=== PATIENT | male | born 1960 | race African-American/Black ===

== ENCOUNTER 2019-08-28 18:17 | Inpatient (IN) | payer MEDICARE ==
[2019-08-28] MEDS ORDERED: Ondansetron PF 4 MG/2 ML Vial IVP PRN ×2 (19:10→19:21)
[2019-08-28] MEDS ORDERED: Acetaminophen 325 MG TAB PO PRN ×2 (19:10→19:21)
[2019-08-28] MEDS ORDERED: Ondansetron ODT 4 MG TAB SL PRN (19:10)
[2019-08-28] MEDS ORDERED: Acetaminophen 650 MG Suppository PR PRN (19:21)
[2019-08-28] MEDS ORDERED: Ondansetron ODT 4 MG TAB PO PRN (19:21)
[2019-08-28] MEDS ORDERED: Albuterol Sulfate 2.5 mg/3 ml Neb NEB PRN (19:24)
[2019-08-28] MEDS: Sodium Chloride 0.9% 1,000 ML IV SCH (19:37)
[2019-08-28] MEDS: Famotidine/PF 20 mg/2ml Vial SLOW IVP SCH (21:03)
[2019-08-28 21:22] VITALS: BMI 22.4
--- NOTE | 2019-08-29 00:45 | HP ---
TIME OF ASSESSMENT: 1800 hours. CHIEF COMPLAINT: Persistent cough. HISTORY OF PRESENT ILLNESS: Mr. Duvall is a pleasant 58-year-old gentleman, who presented to the emergency department today, initially seen at [facility] due to persisting cough for the last 4 months. The patient states he has seen his primary care physician on multiple occasions and has actually completed oral antibiotics for presumed URI with no improvement. The patient states he even attempted to quit smoking in the last 2 to 3 months and has noted no improvement. He states he has experienced occasional orthopnea, causing him have to sleep with the head of his bed elevated for the last 2 to 3 months. Denies any hemoptysis. Has not had any fevers, chills, or sweats until today. While in the emergency department at [facility], he was noted to have a low-grade temperature. The patient denies any chest pain. Denies any lightheadedness or dizziness. Reports notable weight loss of 20 pounds in the last 3 to 4 months. Again, denies any chest pain. REVIEW OF SYSTEMS: All other review of systems are negative. ED COURSE: In the emergency department at [facility], he underwent laboratory studies, which showed white count of 15.4, hemoglobin of 12, hematocrit 42.2, platelets 337, neutrophils 10.5. Sodium 141, potassium 4.3, chloride 104, BUN 9 , creatinine 0.7, GFR greater than 90, glucose 79, calcium 9. LFTs unremarkable. Alkaline phosphatase 146, albumin 3.8, total protein 7.2. He underwent a chest x-ray, which demonstrated a large right upper lobe mass with pleural abutment. Further imaging was obtained with a CT scan of the chest, which showed a large right suprahilar mass suspicious for malignancy with enlarged lymph nodes in the right hilar region at the right aspect suspicious for malignant lymphadenopathy. PET imaging was recommended to assess for metastatic disease. He was noted to have an enlarged lymph node nodule within the right adrenal gland, not fully characterized. Shotty appearing lymph node in the axilla. Interstitial prominence within the right upper lobe and right middle lobe, felt to reflect edema versus lymphangitic spread of tumor. Emphysema present. He was started on IV antibiotics for Zithromax and Rocephin, given DuoNeb and IV fluids with 1 L of normal saline. The patient has been transferred here for further workup and management. At this present time, he denies any complaints. PAST MEDICAL HISTORY: 1. Heavy smoker. 2. Hypertension. 3. Hyperlipidemia. PAST SURGICAL HISTORY: None. SOCIAL HISTORY: The patient lives with his . Denies any heavy alcohol consumption. Reports smoking half a pack a day for over 20 years. He quit in the last 2 to 3 months. Denies any illicit drug use. ALLERGIES: NO KNOWN DRUG ALLERGIES. CURRENT MEDICATIONS: 1. Atorvastatin. 2. Aspirin. 3. Garlic. 4. Amlodipine. 5. Vitamin C. 6. Vitamin D3. 7. Multivitamin. 8. Calcium. PHYSICAL EXAMINATION: GENERAL: The patient appears thin, well developed, and in no acute distress. VITAL SIGNS: Temperature 99.4, pulse of 88, respirations 18, O2 saturation 98% on room air, blood pressure 127/73. HEENT: Normocephalic and atraumatic. Pupils are equal, round, and reactive to light. Sclerae without icterus. Oropharynx is clear. NECK: Supple. LUNGS: Clear to auscultation bilaterally without any wheezes, rales, or rhonchi. CARDIAC: Regular rate and rhythm. ABDOMEN: Soft, nontender, nondistended. Normoactive bowel sounds present. No guarding or rigidity. No renal angle tenderness. EXTREMITIES: No lower leg swelling or edema. NEUROLOGIC: Alert and oriented x3. SKIN: Warm and dry. INVESTIGATIONS: As mentioned above in HPI. IMPRESSION AND PLAN: Mr. Duvall is a pleasant 58-year-old gentleman, who has had a persistent cough for 4 months associated with intermittent orthopnea, who has presented to the emergency department due to no improvement despite courses of antibiotics. The patient being admitted for management of the following. 1. New lung mass. This is very likely malignant and Pulmonology has been consulted for bronchoscopy. The patient with normal saturations and no associated pain or hemoptysis. We will consult Palliative Care for complex decision making. We will order p.faith Wild. The patient without any shortness of breath or wheezing at present. 2. Possible underlying pneumonia. The patient is febrile at [facility]. Started on IV antibiotics which we will continue. 3. Hypertension. Monitor blood pressure and resume home medications once verified. 4. Hyperlipidemia. Resume home medications once verified. 5. Gastrointestinal prophylaxis with famotidine. 6. Deep venous thrombosis prophylaxis with mechanical SCDs. Walking program consulted. 7. Code status full. Surrogate decision maker is his , Concepcion Duvall. The patient's case was discussed with attending, who agrees with plan of care as described above. Job ID: [id number] MTDD
[2019-08-29] MEDS: Sodium Chloride 0.9% 1,000 ML IV SCH ×2 (01:48→11:10)
[2019-08-29 05:11] LABS: #Basophils 0.1 thou/uL (0.0-0.2); #Eosinphils 0.1 thou/uL (0.0-0.7); #Monocytes 1.5 thou/uL (0.11-0.59); #Neutrophils 8.5 thou/uL (1.40-6.50); %Basophils 0.5 % (0.0-1.0); %Lymphocytes 22.5 % (21.0-51.0); %Monocytes 11.5 % (0.0-10.0); %Neutrophils 64.4 % (42.0-75.0); Mean Corpuscular HGB CONC 30.9 g/dL (32.0-36.0); Mean Corpuscular Hemoglobin 25.2 pg (27.0-31.0); Mean Corpuscular Volume 81.6 fL (78.0-98.0); Mean Platelet Volume 9.7 fL (7.4-10.4); Platelet Count 305 thou/uL (130-400); RBC Distribution Width 19.2 % (11.5-14.5); Red Blood Cell (RBC) Count 4.36 mill/uL (4.70-6.10); White Blood Cell (WBC) Count 13.2 thou/uL (4.8-10.8)
[2019-08-29 05:34] LABS: Anion Gap 12 mmol/L (10-20); BUN (Urea Nitrogen) 8 mg/dL (8.4-25.7); Calc. Creatinine Clearance 108 mL/min (70-130); Calcium 8.7 mg/dL (7.8-10.44); Carbon Dioxide 24 mmol/L (22-29); Chloride 107 mmol/L (98-107); Estimated GFR-MDRD Greater than 90; Glucose 75 mg/dL (70-105); Potassium 3.6 mmol/L (3.5-5.1); Sodium 139 mmol/L (136-145)
[2019-08-29] MEDS: Amlodipine 10 MG TAB PO SCH (08:23)
[2019-08-29] MEDS: Atorvastatin Calcium 20 MG TAB PO SCH (08:23)
[2019-08-29] MEDS: Aspirin 81 mg Enteric Coated Tablet PO SCH (08:23)
[2019-08-29] MEDS: Famotidine/PF 20 mg/2ml Vial SLOW IVP SCH ×2 (08:25→20:06)
[2019-08-29] MEDS ORDERED: Lisinopril 10 MG TAB PO SCH (09:00)
[2019-08-29] MEDS ORDERED: Lidocaine 4% PF 5 ML AMP NEB SCH (10:30)
[2019-08-29] MEDS ORDERED: Bacteriostatic Water 30 ML VIAL FS PRN (10:39)
[2019-08-29] MEDS: methylPREDNISolone Sod Succ 40 MG VIAL IVP SCH ×3 (11:10→23:45)
--- NOTE | 2019-08-29 11:15 | PDOC.HOSPP ---
- Subjective Encounter Date: 08/29/19 Encounter Time: 11:13 Subjective: Mr. Duvall was seen today in follow-up of right upper lobe mass. He continues to have the cough, productive of green sputum, no blood. He denies chest pain or shortness of breath. It was also noted that his left arm is swollen. He denies pain or trauma to the arm. - Objective Vital Signs & Weight: Vital Signs (12 hours) Temp Pulse Resp BP Pulse Ox 08/29/19 08:23 80 08/29/19 07:55 98.2 F 80 20 119/79 93 L 08/29/19 03:50 98.2 F 85 18 112/77 97 08/28/19 23:37 99.0 F 86 18 111/76 98 Weight Weight 143 lb 6.4 oz I&O: 08/28/19 08/29/19 08/30/19 06:59 06:59 06:59 Intake Total 2054 Balance 2054 Result Diagrams: 08/29/19 04:41 08/29/19 04:41 Hospitalist ROS - Medication Medications: Active Medications Generic Name Dose Route Start Last Admin Trade Name Wilmer PRN Reason Stop Dose Admin Amlodipine Besylate 10 mg 08/29/19 09:00 08/29/19 08:23 Norvasc PO 10 mg DAILY TAYLA Administration Aspirin 81 mg 08/29/19 09:00 08/29/19 08:23 Ecotrin PO 81 mg DAILY TAYLA Administration Atorvastatin Calcium 20 mg 08/29/19 09:00 08/29/19 08:23 Lipitor PO 20 mg DAILY TAYLA Administration Famotidine 20 mg 08/28/19 21:00 08/29/19 08:25 Pepcid SLOW IVP 20 mg Q12HR TAYLA Administration Sodium Chloride 10 ml 08/28/19 21:00 08/29/19 09:19 Flush - Normal Saline IVF Not Given Q12HR TAYLA - Exam Eye: PERRL Heart: RRR, no murmur, no gallops, no rubs, normal peripheral pulses Respiratory: CTAB (+ E-A changes in the right upper lung posteriorly), no rales , no ronchi Gastrointestinal: soft, non-tender, non-distended, normal bowel sounds, no palpable masses, no hepatomegaly, no splenomegaly Extremities: no cyanosis, no clubbing (+ left upper extremity swelling) Skin: normal turgor, no rashes Hosp A/P (1) Mass of upper lobe of right lung Code(s): R91.8 - OTHER NONSPECIFIC ABNORMAL FINDING OF LUNG FIELD Status: Acute (2) Left upper extremity swelling Code(s): M79.89 - OTHER SPECIFIED SOFT TISSUE DISORDERS Status: Acute (3) COPD (chronic obstructive pulmonary disease) Status: Acute - Plan * Right upper lobe lung mass- he has been evaluated by the carpenter and joiner * Plan is for Bronchoscopy tomorrow * Left upper extremity swelling- will need to check for DVT. 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
[2019-08-29] MEDS ORDERED: methylPREDNISolone Sod Succ/PF 125 MG/2 ML VIAL IVP SCH (12:00)
[2019-08-29] MEDS: cefTRIAXone\\ROCEPHIN 1 GM in Sodium Chloride 0.9% 100 ML IVPB SCH (15:04)
--- NOTE | 2019-08-29 16:25 | ULT ---
Doppler venous ultrasound left upper extremity INDICATION: Left upper extremity edema TECHNIQUE: Grayscale, color Doppler spectral Doppler images were obtained of the left internal jugula r vein, left subclavian vein, left brachial vein, left axillary vein, left basilic vein, left ulnar vein and left renal vein. FINDINGS: There is normal compression, flow and augmentation seen within the venous structures of the left upper extremity. IMPRESSION: No evidence of venous thrombosis within the left upper extremity.
[2019-08-29] MEDS ORDERED: Azithromycin 500 MG in Sodium Chloride 0.9% 250 ML 250 ML IVPB SCH (18:00)
[2019-08-29] MEDS ORDERED: FLU VACC QS2019-20(6MOS UP)/PF 60 MCG/0.5 ML SYRINGE IM ONE (21:00)
[2019-08-30] MEDS: methylPREDNISolone Sod Succ 40 MG VIAL IVP SCH ×2 (05:23→12:00)
[2019-08-30] MEDS ORDERED: Ketamine 50 MG/ML (10ML VIAL) ONE (06:52)
[2019-08-30] MEDS ORDERED: Midazolam HCl 2 mg/2 ml Vial ONE (06:52)
--- NOTE | 2019-08-30 09:21 | CON ---
DATE OF CONSULTATION: HISTORY OF PRESENT ILLNESS: Dane Duvall is a 58-year-old gentleman, a pack a day smoker, for most of his life. He has been coughing for the last 4 months. X-ray taken yesterday shows a large mass. He is transferred here for further evaluation. He has lost 20 pounds. No prior history of TB, pneumonia, or bronchial asthma. Denies any hemoptysis. Denies any chest pain. PAST MEDICAL HISTORY: He is disabled, he says, from multiple medical problems including hypertension, hyperlipidemia. PAST SURGICAL HISTORY: None. HOME MEDICATIONS: Include; 1. B complex. 2. Vitamin. 3. Flonase. 4. Lipitor. 5. Aspirin. 6. Ascorbic acid. 7. Norvasc. ALLERGIES: NONE. SOCIAL HISTORY: As noted. REVIEW OF SYSTEMS: Ten-point negative. PHYSICAL EXAMINATION: VITAL SIGNS: Temperature 98, pulse 80, saturations are 96%, respiratory rate 20, and blood pressure 190/79. GENERAL: He has finger clubbing. CHEST: Decreased breath sounds, right lung. No wheezing. CARDIAC: Normal S1 and S2. No gallops. ABDOMEN: No masses. DIAGNOSTIC DATA: CT shows rather impressive right upper lung mass with hilar mediastinal adenopathy. Lytes are normal. White count 13,000. ASSESSMENT: 1. Right lung bronchogenic carcinoma. 2. Smoker. 3. Hypertension. 4. High cholesterol. PLAN: Bronchoscopy biopsy performed in the next several days. Otherwise, continue supportive care, new treatments, steroids. We will follow. Consultation note, 70 minutes, 50% direct patient care. Job ID: [id number]
--- NOTE | 2019-08-30 09:39 | PRG ---
DATE OF SERVICE: 08/30/2019 SUBJECTIVE: He was seen postop in the recovery room, awake, alert, and responsive. Vital signs are stable. OBJECTIVE: VITAL SIGNS: Temperature 98, pulse 72, respirations 16, saturations are 95%. CHEST: Bilateral rhonchi and crackles. CARDIAC: Normal S1 and S2. No gallops. ABDOMEN: No masses. IMPRESSION: Right upper lung mass, bronchogenic carcinoma, chronic obstructive pulmonary disease. PLAN: Await path report. Further recommendations above. In the meantime, continue steroids and neb treatment. Job ID: [id number]
--- NOTE | 2019-08-30 10:29 | PDOC.PALCO ---
Palliative Care Consult - Consult Details Requesting Physician: Devika FINE Reason for Consult: goals of care, advance directives assistance, assistance with communication prognosis/disease Family Members Present: None - Pertinent HPI 58 year old male who had progressive cough over the past 4 months and presented to [facility] seeking relief from cough with subsequent transfer to [facility]. Emergency room identified a large right hilar mass, and suspected malignant lymphadenopathy. Admitted for further evaluation. Bronch this morning with biopsy and to be continued on steroids and breathing treatments. States 20lb weight loss over the past 2-3 months, quite smoking 2- 3 months ago. - Social History Smoking Status: Former smoker Smoking: cigarettes Alcohol Use: rarely Drug Use History: none Living Situation: - Medications MAR Reviewed: Yes - Allergies Allergies/Adverse Reactions: Allergies Allergy/AdvReac Type Severity Reaction Status Date / Time No Known Drug Allergies Allergy Verified 08/28/19 19:45 - Subjective Awake, alert, able to ambulate without difficulty. - ROS Constitutional: alert, weakness, weight changes (20lb weight loss over the past 2-3 months) Eyes: other (Denies visual changes/loss) ENT: other (denies congestion, difficulity swallowing) Respiratory: shortness of breath with extertion, other (cough) Cardiology: orthopnea Gastrointestinal: other (Denies constipation, diarrhea, nausea, vomiting) Genitourinary: other (Denies frequency, dysuria) Musculoskeletal: other (negative for pain) Skin: other (no changes in skin) - Objective Vital Signs: Vital Signs - Most Recent Temp Pulse Resp BP Pulse Ox 97.3 F L 98 20 146/91 H 95 08/30/19 10:03 08/30/19 10:03 08/30/19 10:03 08/30/19 10:03 08/30/19 10:03 Palliative Performance Scale: 70 - Physical Exam Constitutional: NAD HEENT: EOMI, moist MMs, PERRLA, sclera anicteric Deviation from normal: Exophthalmos Respiratory: no wheezing, unlabored breathing Cardiovascular: RRR Gastrointestinal: continent, non-tender, positive bowel sounds Genitourinary: continent Musculoskeletal: no cyanosis, no clubbing Neurology: moves all 4 limbs, no focal deficits Skin: cap refill <2 seconds, no lesions, no rash Psychiatric: A&O x 3, normal affect, normal mood - Problem List (1) Palliative care encounter Code(s): Z51.5 - ENCOUNTER FOR PALLIATIVE CARE Current Visit: Yes Status: Acute (2) COPD (chronic obstructive pulmonary disease) Current Visit: Yes Status: Acute (3) Left upper extremity swelling Code(s): M79.89 - OTHER SPECIFIED SOFT TISSUE DISORDERS Current Visit: Yes Status: Acute (4) Mass of upper lobe of right lung Code(s): R91.8 - OTHER NONSPECIFIC ABNORMAL FINDING OF LUNG FIELD Current Visit: Yes Status: Acute - Plan/Recommendations Plan: Biopsy today, awaiting path report. States that his goal is to "keep living and have a good day". States he has a strong support system at home, and son. Denies any pain, loss of appetite, difficulty with ADL's. Therapeutic listening. *Await path report and assist with goals of care *Place spiritual care consult for additional support Zaira Couch RNautomation and control engineer to also follow [60] minutes spent on this encounter with >50% of the time in counseling and coordination of care. Thank you for this very appropriate consult.
[2019-08-30] MEDS: Amlodipine 10 MG TAB PO SCH (11:11)
[2019-08-30] MEDS: Famotidine/PF 20 mg/2ml Vial SLOW IVP SCH ×2 (11:11→20:32)
[2019-08-30] MEDS: Aspirin 81 mg Enteric Coated Tablet PO SCH (11:11)
[2019-08-30] MEDS: Atorvastatin Calcium 20 MG TAB PO SCH (11:11)
[2019-08-30] MEDS: Sodium Chloride 0.9% 1,000 ML IV SCH ×3 (11:12→20:34)
--- NOTE | 2019-08-30 11:36 | OP ---
DATE OF PROCEDURE: 08/30/2019 PROCEDURES PERFORMED: Bronchoscopy with transbronchial biopsy. INDICATION: Right upper lung mass, rule out bronchogenic carcinoma. POSTBRONCHOSCOPY DIAGNOSIS: Right upper lung mass, rule out bronchogenic carcinoma. DESCRIPTION OF PROCEDURE: After informed consent from the patient, he received DuoNeb with 4 mL of 4% lidocaine. He was put under general anesthesia. Please review Anesthesia note. A #8 endotracheal tube was used. The flexible Pentax video bronchoscope was then passed by the adapter on the endotracheal tube. Entering the trachea, this was normal. Bernice was sharp. Right lung upper lobe apical posterior segment was narrowed thickened mucosa. Not able to see the subsegment. Anterior segments normal. The right middle lobe and right lobe were otherwise visualized and unremarkable. Left lung was inspected, that was obviously unremarkable. Thereafter, under fluoroscopy, brushings and transbronchial biopsies from the posterior segment were done. Additionally, to the posterior segment right upper lobe was thickened. Multiple biopsies obtained from the area. He received 4 mL of 1:10,000 epinephrine to slow the bleeding. The patient tolerated the procedure well. This area was also lavaged with normal saline multiple times. Washings will be sent for cytology, AFB smear and culture, fungal smear and culture, routine Gram stain, and C and S. Biopsies were sent to histopathology. Brushings were sent to cytology. The patient tolerated the procedure well. Anesthesia, he is to wean off anesthesia and will be transferred back to the room. Further recommendations as above. Postbronchoscopy diagnosis and results revealed to the patient's family. Further recommendations as above. Job ID: [id number]
[2019-08-30] MEDS ORDERED: PROPOFOL 200 MG/20 ML VIAL ONE (13:56)
[2019-08-30] MEDS ORDERED: Succinylcholine Chloride 20 MG/ML 10 ml SYRINGE FS ONE (13:56)
[2019-08-30] MEDS ORDERED: Glycopyrrolate 0.2 MG/ML 5 ML SYRINGE ONE (13:56)
[2019-08-30] MEDS ORDERED: Rocuronium Bromide 10 MG/ML (10ML VIAL) ONE (13:56)
[2019-08-30] MEDS ORDERED: Lidocaine 1% PF 5 ML VIAL ONE (13:56)
[2019-08-30] MEDS ORDERED: Ondansetron PF 4 MG/2 ML Vial ONE (13:56)
[2019-08-30] MEDS ORDERED: Esmolol 100 MG/10 ML VIAL ONE (13:56)
[2019-08-30] MEDS ORDERED: EPINEPHrine 1 MG/10 ML Abboject SYRINGE ONE (13:57)
--- NOTE | 2019-08-30 15:46 | PDOC.HOSPP ---
- Subjective Encounter Date: 08/30/19 Encounter Time: 15:44 Subjective: Mr. Duvall was seen today in follow-up right upper lobe lung mass. He does not have any complaints. He is breathing better. - Objective Vital Signs & Weight: Vital Signs (12 hours) Temp Pulse Resp BP BP Pulse Ox 08/30/19 14:06 101 H 16 94 L 08/30/19 11:11 98 146/91 H 08/30/19 10:03 97.3 F L 98 20 146/91 H 95 08/30/19 08:00 95 08/30/19 07:50 82 16 95 08/30/19 04:52 98.3 F 80 18 132/80 97 Weight Weight 143 lb 6.4 oz I&O: 08/29/19 08/30/19 08/31/19 06:59 06:59 06:59 Intake Total 2054 Balance 2054 Result Diagrams: 08/29/19 04:41 08/29/19 04:41 Hospitalist ROS - Medication Medications: Active Medications Generic Name Dose Route Start Last Admin Trade Name Freq PRN Reason Stop Dose Admin Albuterol/Ipratropium 3 ml 08/29/19 13:00 08/30/19 14:06 Duoneb NEB 3 ml [id number] TAYLA Administration Amlodipine Besylate 10 mg 08/29/19 09:00 08/30/19 11:11 Norvasc PO 10 mg DAILY TAYLA Administration Aspirin 81 mg 08/29/19 09:00 08/30/19 11:11 Ecotrin PO 81 mg DAILY TAYLA Administration Atorvastatin Calcium 20 mg 08/29/19 09:00 08/30/19 11:11 Lipitor PO 20 mg DAILY TAYLA Administration Famotidine 20 mg 08/28/19 21:00 08/30/19 11:11 Pepcid SLOW IVP 20 mg Q12HR TAYLA Administration Ceftriaxone Sodium 1 gm/ 100 mls @ 200 mls/hr 08/29/19 17:00 08/29/19 15:04 Sodium Chloride IVPB 100 mls Q24HR TAYLA Administration Sodium Chloride 1,000 mls @ 50 mls/hr 08/29/19 10:30 08/30/19 11:12 Normal Saline 0.9% IV Not Given .Q20H TAYLA Methylprednisolone Sodium Succinate 40 mg 08/29/19 12:00 08/30/19 12:00 Solu-Medrol IVP 40 mg Q6HR TAYLA Administration Sodium Chloride 10 ml 08/28/19 21:00 08/30/19 11:12 Flush - Normal Saline IVF Not Given Q12HR TAYLA - Exam Eye: PERRL Heart: RRR, no murmur, no gallops, no rubs, normal peripheral pulses Respiratory: CTAB, no wheezes, no rales, no ronchi, normal chest expansion, no tachypnea, normal percussion Gastrointestinal: soft, non-tender, non-distended, normal bowel sounds, no palpable masses, no hepatomegaly Extremities: no cyanosis, no clubbing, no edema (in the lower extremities, 2+ edema in the left upper extremity, no warmth) Hosp A/P (1) Mass of upper lobe of right lung Code(s): R91.8 - OTHER NONSPECIFIC ABNORMAL FINDING OF LUNG FIELD Status: Acute (2) Left upper extremity swelling Code(s): M79.89 - OTHER SPECIFIED SOFT TISSUE DISORDERS Status: Acute (3) COPD (chronic obstructive pulmonary disease) Status: Acute - Plan * Right upper lobe lung mass- he is s/p bronchoscopy and biopsy, and awaiting the results * Left upper extremity swelling- venous doppler was negative for DVT * COPD- with exacerbation- continue Antibiotics, steroids, and duonebs
[2019-08-30] MEDS: cefTRIAXone\\ROCEPHIN 1 GM in Sodium Chloride 0.9% 100 ML IVPB SCH (17:01)
[2019-08-31] MEDS: methylPREDNISolone Sod Succ 40 MG VIAL IVP SCH ×3 (00:13→05:50)
[2019-08-31] MEDS: Atorvastatin Calcium 20 MG TAB PO SCH (07:49)
[2019-08-31] MEDS: Amlodipine 10 MG TAB PO SCH (07:49)
[2019-08-31] MEDS: Aspirin 81 mg Enteric Coated Tablet PO SCH (07:49)
[2019-08-31] MEDS: Famotidine/PF 20 mg/2ml Vial SLOW IVP SCH ×2 (07:50→20:26)
--- NOTE | 2019-08-31 10:14 | PRG ---
DATE OF SERVICE: 08/31/2019 SUBJECTIVE: This morning, he is better, less short of breath, less cough. OBJECTIVE: VITAL SIGNS: Temperature 98, pulse 90, saturations 92% on room air, respirations 17, blood pressure is 130/86. CHEST: Decreased breath sounds in the right lung. CARDIAC: Normal S1 and S2. No gallops. ABDOMEN: Soft. ASSESSMENT AND PLAN: Right upper lung mass with marked narrowing of the right upper lung bronchus, status post biopsy. Otherwise, continue supportive care, PT. Await path thereafter. Disposition as per primary care physician. Job ID: [id number]
[2019-08-31] MEDS: Cefdinir 300 MG CAP PO SCH ×2 (10:59→20:26)
--- NOTE | 2019-08-31 15:02 | PDOC.HOSPP ---
- Subjective Encounter Date: 08/31/19 Encounter Time: 15:01 Subjective: Mr. Duvall was seen today in follow-up of right upper lobe mass. He does not have any new complaints. He denies chest pain or shortness of breath. - Objective Vital Signs & Weight: Vital Signs (12 hours) Temp Pulse Resp BP Pulse Ox 08/31/19 13:17 79 18 96 08/31/19 10:50 98.1 F 75 18 130/82 97 08/31/19 08:00 92 L 08/31/19 07:10 98.1 F 90 17 132/86 92 L 08/31/19 06:27 75 16 97 Weight Weight 143 lb 6.4 oz Result Diagrams: 08/29/19 04:41 08/29/19 04:41 Hospitalist ROS - Medication Medications: Active Medications Generic Name Dose Route Start Last Admin Trade Name Freq PRN Reason Stop Dose Admin Albuterol/Ipratropium 3 ml 08/29/19 13:00 08/31/19 13:17 Duoneb NEB 3 ml [id number] TAYLA Administration Amlodipine Besylate 10 mg 08/29/19 09:00 08/31/19 07:49 Norvasc PO 10 mg DAILY TAYLA Administration Aspirin 81 mg 08/29/19 09:00 08/31/19 07:49 Ecotrin PO 81 mg DAILY TAYLA Administration Atorvastatin Calcium 20 mg 08/29/19 09:00 08/31/19 07:49 Lipitor PO 20 mg DAILY TAYLA Administration Cefdinir 300 mg 08/31/19 09:00 08/31/19 10:59 Omnicef PO 09/05/19 09:01 300 mg BID TAYLA Administration Famotidine 20 mg 08/28/19 21:00 08/31/19 07:50 Pepcid SLOW IVP 20 mg Q12HR TAYLA Administration Sodium Chloride 1,000 mls @ 50 mls/hr 08/29/19 10:30 08/30/19 20:34 Normal Saline 0.9% IV 1,000 mls .Q20H TAYLA Administration Sodium Chloride 10 ml 08/28/19 21:00 08/31/19 07:50 Flush - Normal Saline IVF Not Given Q12HR TAYLA - Exam Eye: PERRL Heart: RRR, no murmur, no gallops, no rubs, normal peripheral pulses, irregular , diminshed peripheral pulses, murmur present, II/IV, III/IV Respiratory: CTAB, no rales, no ronchi, no tachypnea, wheezes Gastrointestinal: soft, non-tender, non-distended, normal bowel sounds, no palpable masses, no hepatomegaly, no splenomegaly Extremities: no cyanosis, no clubbing, no edema Hosp A/P (1) Mass of upper lobe of right lung Code(s): R91.8 - OTHER NONSPECIFIC ABNORMAL FINDING OF LUNG FIELD Status: Acute (2) Left upper extremity swelling Code(s): M79.89 - OTHER SPECIFIED SOFT TISSUE DISORDERS Status: Acute (3) COPD (chronic obstructive pulmonary disease) Status: Acute - Plan * Right upper lobe lung mass- biopsy was non-diagnostic- he will need to have CT guided biopsy * Left upper extremity swelling- I suspect due to adenopathy, and poor venous return- possibly impending SVC syndrome * COPD- with exacerbation- stable
[2019-09-01] MEDS: Aspirin 81 mg Enteric Coated Tablet PO SCH (08:29)
[2019-09-01] MEDS: Famotidine/PF 20 mg/2ml Vial SLOW IVP SCH ×2 (08:32→21:08)
--- NOTE | 2019-09-01 09:00 | PRG ---
DATE OF SERVICE: 09/01/2019 SUBJECTIVE: This morning, he is awake, alert, and responsive. No pain. No shortness of breath. OBJECTIVE: VITAL SIGNS: Temperature 98, pulse 79, respirations 20, saturations are 96% on room air, blood pressure 110/70. CHEST: No wheezing or crackle. CARDIAC: Normal S1 and S2. No gallops. ABDOMEN: No masses. ASSESSMENT: 1. Right upper lung mass, bronchogenic carcinoma. Biopsy shows suspicious cells, but could not correlate diagnostic. Therefore, CT-guided biopsy is planned. 2. Tobacco abuse. PLAN: The patient has a peripheral mass-like lesion with endobronchial disease. He will get a biopsy hopefully. Discharge thereafter. Disposition as per recommendation later on with input from Oncology. Job ID: [id number]
[2019-09-01 09:21] LABS: Prothrombin Time 13.6 SEC (12.0-14.7)
[2019-09-01] MEDS ORDERED: Midazolam HCl 2 mg/2 ml Vial ONE (09:53)
[2019-09-01] MEDS ORDERED: Fentanyl 100 MCG/2 ML VIAL ONE (09:53)
[2019-09-01] MEDS ORDERED: Sodium Bicarbonate 2.5 MEQ/5 ML VIAL ONE (09:53)
--- NOTE | 2019-09-01 12:10 | CT ---
PROCEDURE NOTE: PREPROCEDURE DIAGNOSIS: Right lung mass PROCEDURE: CT-guided lung mass biopsy EP TECHNOLOGIST: Kayleigh ANESTHESIA: 5 mL of buffered 1% lidocaine; 50 mcg fentanyl IV. SPECIMEN: 6 -- 20-gauge core biopsy specimens TECHNIQUE: Prior to the procedure, the risks and benefits of a lung mass biopsy were explained to the patient which consented fully to the procedure. The risk of pneumothorax was explained to the patient. The patient's prior CT was reviewed and the lung mass was again identified. The patient was scanned w ith a fiducial marker in place in the prone position. A claudio was then placed on the skin at the area of best entry into the thorax to obtain a biopsy of the lung mass. The skin was prepped and draped in usual sterile fashion. Lidocaine was used to anesthetize the skin and soft tissues down towards the lung mass. A scan was performed with the lidocaine needle showing appropriate direction of the needle. The lidocaine needle was removed and a 19-gauge guiding trocar w as placed using CT guidance. The guiding trocar was placed at the edge of the mass. A 20-gauge biopsy device was then placed throu gh the guiding trocar and multiple biopsies were obtained. Pathology was present for the procedure which reported seeing tissue that was not normal lung tissue. A scan was performed at the end of the exam showing no evidence of pneumothorax.
[2019-09-01] MEDS: Amlodipine 10 MG TAB PO SCH (12:51)
[2019-09-01] MEDS: Cefdinir 300 MG CAP PO SCH ×2 (12:51→21:08)
[2019-09-01] MEDS: predniSONE 20 MG TAB PO SCH (12:51)
[2019-09-01] MEDS: Atorvastatin Calcium 20 MG TAB PO SCH (12:52)
--- NOTE | 2019-09-01 13:01 | PDOC.HOSPP ---
- Subjective non-verbal Subjective: pt's cough is improving, just returned from his procedure. No acute c/o.left arm swelling of 3 months duration c/w lung mass. - Objective Vital Signs & Weight: Vital Signs (12 hours) Temp Pulse Resp BP Pulse Ox 09/01/19 12:02 98.1 F 72 18 126/82 97 09/01/19 08:00 96 09/01/19 07:45 98.2 F 75 20 118/76 96 09/01/19 07:29 95 16 97 09/01/19 04:45 97.9 F 95 20 125/83 97 Weight Weight 143 lb 6.4 oz Result Diagrams: 08/29/19 04:41 08/29/19 04:41 Hospitalist ROS - Medication Medications: Active Medications Generic Name Dose Route Start Last Admin Trade Name Freq PRN Reason Stop Dose Admin Albuterol/Ipratropium 3 ml 08/29/19 13:00 09/01/19 07:29 Duoneb NEB 3 ml [id number] TAYLA Administration Amlodipine Besylate 10 mg 08/29/19 09:00 09/01/19 12:51 Norvasc PO 10 mg DAILY TAYLA Administration Atorvastatin Calcium 20 mg 08/29/19 09:00 09/01/19 12:52 Lipitor PO 20 mg DAILY TAYLA Administration Cefdinir 300 mg 08/31/19 09:00 09/01/19 12:51 Omnicef PO 09/05/19 09:01 300 mg BID TAYLA Administration Famotidine 20 mg 08/28/19 21:00 09/01/19 08:32 Pepcid SLOW IVP 20 mg Q12HR TAYLA Administration Prednisone 20 mg 09/01/19 08:00 09/01/19 12:51 Prednisone PO 09/06/19 08:01 20 mg QAM-WM TAYLA Administration Sodium Chloride 10 ml 08/28/19 21:00 09/01/19 08:32 Flush - Normal Saline IVF 10 ml Q12HR TAYLA Administration - Exam General Appearance: NAD, awake alert Eye: PERRL, anicteric sclera, scleral icterus Neck: supple, symmetric, no JVD, no thyromegaly, no lymphadenopathy, no carotid bruit, JVD Heart: RRR, no murmur, no gallops, no rubs, normal peripheral pulses, irregular , diminshed peripheral pulses, murmur present, II/IV, III/IV Respiratory: CTAB, no wheezes, no rales, no ronchi, normal chest expansion, no tachypnea, normal percussion, rales, rhonchi, tachypneic, wheezes Musculoskeletal: normal tone, normal strength, no muscle wasting Musculoskeletal - other findings: left arm swelling of 3 months duration. Hosp A/P - Plan old records reviewed/req Hosp A/P (1) Mass of upper lobe of right lung Code(s): R91.8 - OTHER NONSPECIFIC ABNORMAL FINDING OF LUNG FIELD Status: Acute (2) Left upper extremity swelling Code(s): M79.89 - OTHER SPECIFIED SOFT TISSUE DISORDERS Status: Acute (3) COPD (chronic obstructive pulmonary disease) Status: Acute - Plan Prob bronchogenic carcinoma -- bx done on leukocytosis -- d/t adverse stress rx and inflammatory process w.. CA-- clinically non-infectious prob SVC syndrome --need to be r/o ---peripheral mass - suspect due to adenopathy, and poor venous return- possibly impending SVC syndrome * Right upper lobe lung mass- biopsy was non-diagnostic- he will need to have CT guided biopsy, which is done today by pulm. * plan for dc in 1 to 2 days after confirming with pulm and Outpt fw w.. oncology appt. * * Cough- symptomatic tx w.. cough drops for now. *
[2019-09-02] MEDS: Cefdinir 300 MG CAP PO SCH ×2 (08:17→20:28)
[2019-09-02] MEDS: Amlodipine 10 MG TAB PO SCH (08:17)
[2019-09-02] MEDS: predniSONE 20 MG TAB PO SCH (08:17)
[2019-09-02] MEDS: Atorvastatin Calcium 20 MG TAB PO SCH (08:17)
[2019-09-02] MEDS: Famotidine/PF 20 mg/2ml Vial SLOW IVP SCH (08:18)
--- NOTE | 2019-09-02 09:01 | PRG ---
DATE OF SERVICE: 09/02/2019 SUBJECTIVE: This morning, he is better, status post CT-guided biopsy of right upper lung mass. OBJECTIVE: VITAL SIGNS: Temperature 98, pulse 90, saturations 90% on room air, blood pressure 126/81. CHEST: Decreased breath sounds in right lung with rhonchi. CARDIAC: Normal S1 and S2. No gallop. ABDOMEN: No mass. IMPRESSION: Right lung cancer, await final path. PLAN: Input from Oncology. He is not resectable.,could be discharged home, follow up on outpatient basis with Oncology. Job ID: [id number] MTDD
--- NOTE | 2019-09-02 10:38 | PDOC.HOSPP ---
- Subjective Subjective: doing well, no c/o; tentative plan discussed; bx result pending. - Objective Vital Signs & Weight: Vital Signs (12 hours) Temp Pulse Resp BP Pulse Ox 09/02/19 08:17 90 09/02/19 07:23 98 F 90 18 127/81 98 09/02/19 07:00 76 12 09/01/19 23:58 75 12 94 L Weight Weight 143 lb 6.4 oz Result Diagrams: 08/29/19 04:41 08/29/19 04:41 Hospitalist ROS - Medication Medications: Active Medications Generic Name Dose Route Start Last Admin Trade Name Freq PRN Reason Stop Dose Admin Albuterol/Ipratropium 3 ml 08/29/19 13:00 09/02/19 07:00 Duoneb NEB 3 ml [id number] TAYLA Administration Amlodipine Besylate 10 mg 08/29/19 09:00 09/02/19 08:17 Norvasc PO 10 mg DAILY TAYLA Administration Atorvastatin Calcium 20 mg 08/29/19 09:00 09/02/19 08:17 Lipitor PO 20 mg DAILY TAYLA Administration Cefdinir 300 mg 08/31/19 09:00 09/02/19 08:17 Omnicef PO 09/05/19 09:01 300 mg BID TAYLA Administration Famotidine 20 mg 08/28/19 21:00 09/02/19 08:18 Pepcid SLOW IVP 20 mg Q12HR TAYLA Administration Prednisone 20 mg 09/01/19 08:00 09/02/19 08:17 Prednisone PO 09/06/19 08:01 20 mg QAM-WM TAYLA Administration Sodium Chloride 10 ml 08/28/19 21:00 09/02/19 08:22 Flush - Normal Saline IVF 10 ml Q12HR TAYLA Administration - Exam General Appearance: NAD, awake alert, ill appearing Eye: PERRL, anicteric sclera, scleral icterus Neck: supple, symmetric, no JVD, no thyromegaly, no lymphadenopathy, no carotid bruit, JVD Heart: RRR, no murmur, no gallops, no rubs, normal peripheral pulses, irregular , diminshed peripheral pulses, murmur present, II/IV, III/IV Respiratory: CTAB, no wheezes, no rales, no ronchi, normal chest expansion, no tachypnea, normal percussion, rales, rhonchi, tachypneic, wheezes Gastrointestinal: soft, non-tender, non-distended, normal bowel sounds, no palpable masses, no hepatomegaly, no splenomegaly, no bruit, no guarding, no rigidity, tender to palpation, distended, diminished bowl sounds, voluntary guarding Hosp A/P - Plan Hosp A/P (1) Mass of upper lobe of right lung Code(s): R91.8 - OTHER NONSPECIFIC ABNORMAL FINDING OF LUNG FIELD Status: Acute (2) Left upper extremity swelling Code(s): M79.89 - OTHER SPECIFIED SOFT TISSUE DISORDERS Status: Acute (3) COPD (chronic obstructive pulmonary disease) Status: Acute - Plan Prob bronchogenic carcinoma -- bx done on leukocytosis -- d/t adverse stress rx and inflammatory process w.. CA-- clinically non-infectious prob SVC syndrome --need to be r/o ---peripheral mass - suspect due to adenopathy, and poor venous return- possibly impending SVC syndrome * Right upper lobe lung mass- biopsy was non-diagnostic- he will need to have CT guided biopsy, which is done today by pulm. * plan for dc in 1 to 2 days after confirming with pulm and Outpt fw w.. oncology appt. * * Cough- symptomatic tx w.. cough drops for now. * -bx pending.
[2019-09-02] MEDS ORDERED: Magnevist 469MG/ML 20 ML VIAL ONE (13:58)
--- NOTE | 2019-09-02 17:03 | MRI ---
Exam: Brain MRI with and without contrast HISTORY: New lung cancer. Facial swelling COMPARISON: None FINDINGS: Gradient echo sequence: Small hypointensity in the right epstein radiata likely representing a focus o f hemosiderin from remote white matter insult. Acute parenchymal hemorrhage is not appreciated. Calvarium: Appropriate T1 marrow signal intensity Midline brain parenchyma: Unremarkable Cerebrum:No mass effect or midline shift. Brain volume, age-appropriate. Cortical garber-white matter d ifferentiation is preserved. Ventricles and sulci are patent and symmetric. Ventricles: No evidence of hydrocephalus. Sinuses and mastoid air cells: Adequate aeration Diffusion: Central arterial flow is maintained. Absent restricted diffusion. Postcontrast images:Small peripherally enhancing lesion in the medial left occipital lobe, measuring 0.6 x 0.6 x 0.4 cm. No significant associated vasogenic edema or mass effect. No abnormal enhancement in the cerebellum or right cerebrum. Postcontrast images do not demonstrate any evidence of dural venous sinus thrombosis. IMPRESSION: Solitary enhancing focus in the medial left occipital lobe without associated mass effect or midline shift. Transcribed Date/Time: 09/02/2019 5:39 PM
--- NOTE | 2019-09-02 17:05 | CON ---
DATE OF CONSULTATION: REASON FOR CONSULTATION: Lung mass. HISTORY OF PRESENT ILLNESS: Mr. Duvall is a pleasant, 58-year-old, gentleman, who presented to the [place] ER with a complaint of cough for the past 4 months and 20-pound weight loss. He had seen his primary care and was given antibiotics with no improvement. He denied any hemoptysis. No chest pain. He is a lifelong smoker with [id number] history of smoking. He underwent a chest x-ray in the emergency room in [place], which showed a large right upper lobe mass measuring 10 cm in size. He underwent a CT scan of the chest, which confirmed a 7.2 x 8.6 x 8.6 cm mass in the right suprahilar region. He did have some emphysema changes. There was lymphedema in the right hilar region. There was some concern for lymphangitic spread. There was an ill-defined nodule in the right adrenal gland measuring 1.3 cm. The patient has had right facial swelling, but no blurred vision or headaches. He was transferred to this facility for further workup. He underwent a bronchoscopy that was not diagnostic. He then underwent a CT-guided needle biopsy of his lung mass, which is currently pending. He is resting comfortably at bedside. Denies any complaints at this time except for left upper extremity swelling. PAST MEDICAL HISTORY: 1. Hypertension. 2. Hyperlipidemia. 3. Tobacco use. PAST SURGICAL HISTORY: None. ALLERGIES: NO KNOWN DRUG ALLERGIES. HOME MEDICATIONS: 1. Amlodipine. 2. Ecotrin. 3. Lipitor. 4. Multivitamins. 5. Supplements. FAMILY HISTORY: Denies family history of cancer. SOCIAL HISTORY: . Lives with his spouse. A [id number] history of smoking. No alcohol or illicit drug use. REVIEW OF SYSTEMS: Ten-point review of systems is negative except for noted in HPI. PHYSICAL EXAMINATION: VITAL SIGNS: Temperature is 98.0, pulse is 90, respiratory rate 18, BP is 127/81. He is 98% on room air. GENERAL: This is a well-developed, well-nourished male, in no acute distress. HEENT: Normocephalic and atraumatic. Pupils are equal and reactive to light. He does have injected sclerae. NECK: Supple. CV: Regular rate and rhythm. LUNGS: He has scattered rhonchi with decreased breath sounds in the right upper lobe. ABDOMEN: Soft and nontender. Bowel sounds are positive. EXTREMITIES: No clubbing or cyanosis. SKIN: No rash. HEMATOLOGICAL: No petechiae or purpura. NEUROLOGICAL: Nonfocal. PERTINENT LABS AND X-RAYS: Current WBCs 13.2, hemoglobin 11.0, hematocrit 35.6, platelet count 305,000. He has 64% neutrophils and 22% lymphocytes. PT 13.6, INR is 1, PTT is 30. Sodium is 139, potassium 3.6, chloride 107, CO2 is 24, BUN is 8, creatinine 0.68, calcium 8.7, bilirubin 0.8, AST 16, ALT is 21, alkaline phosphatase is 146, serum total protein 7.2, albumin 3.8, globulin 3.4. Radiology, per HPI. ASSESSMENT: 1. Large right upper lobe mass consistent with primary lung cancer. 2. Long-term smoker. DISCUSSION: The patient's right upper lobe mass has been biopsied, and final pathology has not been completed. He has had some facial swelling over the past several weeks. We will get a brain MRI to rule out brain metastasis. He was encouraged to quit smoking. He will follow up next week with Dr. Banuelos in our clinic to discuss biopsy results and treatment options. Thank you for the consult. Job ID: [id number]
[2019-09-03] MEDS: Amlodipine 10 MG TAB PO SCH (08:37)
[2019-09-03] MEDS: predniSONE 20 MG TAB PO SCH (08:37)
[2019-09-03] MEDS: Atorvastatin Calcium 20 MG TAB PO SCH (08:37)
[2019-09-03] MEDS: Cefdinir 300 MG CAP PO SCH (08:37)
[2019-09-03 09:11] LABS: Fungus Stain Final report (.)
--- NOTE | 2019-09-03 09:20 | PRG ---
DATE OF SERVICE: 09/03/2019 SUBJECTIVE: This morning, he is awake, alert, responsive, no shortness breath, no cough. OBJECTIVE: VITAL SIGNS: Temperature 98, pulse 77, respiratory rate 20, sats 90% on room air, blood pressure 120/78. CHEST: Rhonchi, crackles, right greater than left. CARDIAC: Normal S1, S2. No gallops. ABDOMEN: No masses. Metastatic adenocarcinoma with a surprisingly single hospital met on the MRI. DISPOSITION: Home anytime. Follow up with Oncology. Job ID: [id number]
--- NOTE | 2019-09-03 12:41 | PDOC.HOSPP ---
- Subjective Encounter Date: 09/03/19 Encounter Time: 12:39 Subjective: Mr. Duvall was seen today in follow-up of Lung mass and COPD. He says he is feeling fine nocomplaints. - Objective Vital Signs & Weight: Vital Signs (12 hours) Temp Pulse Resp BP Pulse Ox 09/03/19 08:35 100 09/03/19 07:25 98.0 F 77 20 122/78 100 09/03/19 06:49 77 16 100 Weight Weight 143 lb 6.4 oz Result Diagrams: 08/29/19 04:41 08/29/19 04:41 Hospitalist ROS - Medication Medications: Active Medications Generic Name Dose Route Start Last Admin Trade Name Freq PRN Reason Stop Dose Admin Albuterol/Ipratropium 3 ml 08/29/19 13:00 09/03/19 06:49 Duoneb NEB 3 ml [id number] TAYLA Administration Amlodipine Besylate 10 mg 08/29/19 09:00 09/03/19 08:37 Norvasc PO 10 mg DAILY TAYLA Administration Atorvastatin Calcium 20 mg 08/29/19 09:00 09/03/19 08:37 Lipitor PO 20 mg DAILY TAYLA Administration Cefdinir 300 mg 08/31/19 09:00 09/03/19 08:37 Omnicef PO 09/05/19 09:01 300 mg BID TAYLA Administration Prednisone 20 mg 09/01/19 08:00 09/03/19 08:37 Prednisone PO 09/06/19 08:01 20 mg QAM-WM TAYLA Administration Sodium Chloride 10 ml 08/28/19 21:00 09/03/19 08:37 Flush - Normal Saline IVF 10 ml Q12HR TAYLA Administration - Exam Eye: PERRL Heart: RRR, no murmur, no gallops, no rubs, normal peripheral pulses Respiratory: CTAB, no wheezes, no rales, no ronchi, normal chest expansion, no tachypnea, normal percussion Gastrointestinal: soft, non-tender, non-distended, normal bowel sounds, no palpable masses, no hepatomegaly Extremities: no cyanosis Hosp A/P (1) Mass of upper lobe of right lung Code(s): R91.8 - OTHER NONSPECIFIC ABNORMAL FINDING OF LUNG FIELD Status: Acute (2) Left upper extremity swelling Code(s): M79.89 - OTHER SPECIFIED SOFT TISSUE DISORDERS Status: Acute (3) COPD (chronic obstructive pulmonary disease) Status: Acute - Plan * Right upper lobe lung mass- He is stable for discharge with follow-up in the cancer center.
--- NOTE | 2019-09-03 14:20 | PDOC.MOPN ---
Interval History: no complaints. - Vital Signs Vital Signs: Vital Signs (12 hours) Temp Pulse Resp BP Pulse Ox 09/03/19 12:55 83 14 99 09/03/19 08:35 100 09/03/19 07:25 98.0 F 77 20 122/78 100 09/03/19 06:49 77 16 100 Weight Weight 143 lb 6.4 oz - Physical Exam General: Alert, Oriented x3, No acute distress HEENT: Atraumatic, PERRLA, EOMI, Mucous membr. moist/pink Lungs: Other (diminished) Cardiovascular: Regular rate, Normal S1, Normal S2, No murmurs, Gallops, Rubs Abdomen: Normal bowel sounds, Soft, No tenderness, No hepatospenomegaly, No masses Extremities: No clubbing, No cyanosis, No edema, Normal pulses, No tenderness/ swelling Skin: No rashes, No breakdown, No significant lesion Neurological: Normal gait, Normal speech, Strength at 5/5 X4 ext, Normal tone, Sensation intact, Cranial nerves 3-12 NL, Reflexes 2+ Psych/Mental Status: Mental status NL, Mood NL - Labs Result Diagrams: 08/29/19 04:41 08/29/19 04:41 Lab results: Laboratory Results - last 24 hr 08/30/19 08:51: Fungus Stain Status: lab reviewed by me A/P - Problem (1) Mass of upper lobe of right lung Current Visit: Yes Code(s): R91.8 - OTHER NONSPECIFIC ABNORMAL FINDING OF LUNG FIELD Status: Acute - Plan Plan: discussed MRI findings, subcentimeter lesion noted FOllow-up next week to discuss treatment stop smoking. discharge home.
[2019-09-03 14:28] VITALS: BP 119/78; TEMP 98.5
--- NOTE | 2019-09-07 14:57 | DIS ---
DATE OF ADMISSION: 08/28/2019 DATE OF DISCHARGE: 09/03/2019 DISCHARGE DISPOSITION: Home. DISCHARGE DIAGNOSES: 1. Poorly differentiated non-small cell carcinoma. 2. Probable chronic obstructive pulmonary disease. 3. Hypertension. 4. Hyperlipidemia. 5. Tobacco abuse. DISCHARGE MEDICATIONS: Include; 1. Omnicef 300 mg p.o. twice daily. 2. Albuterol 2 puffs q.6 as needed. 3. Vitamin B complex one tablet daily. 4. Multivitamin once a day. 5. Garlic 1000 mg daily. 6. Flonase nasal spray daily. 7. Lipitor 20 mg at bedtime. 8. Aspirin 81 mg daily. 9. Vitamin C 500 mg p.o. daily. 10. Amlodipine 10 mg daily. CODE STATUS: Full code. ALLERGIES: NO KNOWN DRUG ALLERGIES. PROCEDURES DONE DURING ADMISSION: The patient had an upper extremity venous Doppler, which was negative. The patient had a bronchoscopy and biopsy, which were nondiagnostic, followed by a CT-guided biopsy, which the pathology came back as poorly differentiated non-small cell carcinoma, presumably adenocarcinoma. The patient also had an MRI of the brain showing a solitary enhancing focus in the medial left occipital lobe without any mass effect. HOSPITAL COURSE: Mr. Duvall is a very pleasant 58-year-old gentleman, who presented to the hospital with chronic cough, which had failed outpatient treatment. The full details of which are outlined in the history and physical. He was evaluated in the ER and found to have a large right upper lobe mass. He was admitted and Pulmonology was consulted. He underwent bronchoscopy initially, which was nondiagnostic. This was followed by a CT-guided biopsy of the chest, which demonstrated non-small cell carcinoma. He also has probable COPD with an exacerbation and was treated with antibiotics, steroids, and nebs for this. After diagnosis was made, he was seen by Oncology and the recommendation was for him to be discharged and followed up sooner after at the Oncology Clinic, at which time, a treatment plan would be outlined. He will also be discharged home on a short course of antibiotics as well as an albuterol inhaler. Job ID: [id number]
== END 2019-09-03 14:29 | disposition home or self-care (01) | DRG 167 ==
LOC: T4-A 18:43
PROVIDERS: ADMIT Family Medicine; ATTEND Family Medicine
PROC: 0BBG8ZX Excision of Left Upper Lung Lobe, Via Natural or Artificial Opening Endoscopic, Diagnostic (ICD-10-PCS; principal; 2019-08-30)
PROC: 0B9C8ZX Drainage of Right Upper Lung Lobe, Via Natural or Artificial Opening Endoscopic, Diagnostic (ICD-10-PCS; 2019-08-30)
PROC: 0BBC3ZX Excision of Right Upper Lung Lobe, Percutaneous Approach, Diagnostic (ICD-10-PCS; 2019-09-01)
DX: C34.11 Malignant neoplasm of upper lobe, right bronchus or lung (principal); J44.1 Chronic obstructive pulmonary disease with (acute) exacerbation; I10 Essential (primary) hypertension; E78.5 Hyperlipidemia, unspecified; F17.200 Nicotine dependence, unspecified, uncomplicated; E78.00 Pure hypercholesterolemia, unspecified; Z79.899 Other long term (current) drug therapy; Z28.21 Immunization not carried out because of patient refusal
CPT/HCPCS: 32405; 36415; 70553; 76000; 77002; 80048; 85025; 85610; 85730; 87070; 87102; 87116; 87205; 87206; 88104; 88112; 88305; 88312; 88313; 88333; 88334; 88341; 88342; 94640; A9579; J0171; J0456; J0696; J2001; J2250; J2405; J2704; J2920; J3010; J3490; J7050; J7512; J7620; S0028

== ENCOUNTER 2019-09-13 10:33 | Outpatient (CLI) | payer MEDICARE ==
--- NOTE | 2019-09-13 14:12 | PET ---
Radionucleotide PET scan with CT attenuation correction HISTORY: Right upper lobe lung cancer. Initial staging. FINDINGS: It is the periphery of the large necrotic right upper lobe mass that shows increased radiot racer uptake. The most intense activity is along the superior lateral margin of the lesion, maximum SUV 18.2. Increased activity associated with mediastinal adenopathy include the pretracheal adenopathy maximum SUV 8.6 and the subcarinal adenopathy maximum SUV 11.1. At the left posterior paraspinal pleural space at the level of T5, a focus of increased activity show s maximum SUV 5.2 and may reflect a pleural metastatic implant or a lymph node. The lesion of the posterior aspect of left rib 3 maximum SUV 5.3. Anterior aspect of right rib 8 maximum SUV 8.5. Increased activity associated with the right adrenal gland maximum SUV 6.3. Lymph node immediately obrien perior to the pancreatic body maximum SUV 3.3. Within the posterolateral aspect of the right retroperitoneal fat at the level of the inferior pole o f the right kidney, a subtle nodule with hypermetabolic activity shows maximum SUV 2.3. Hypermetabolic lesion at the left ischial bone maximum SUV 5.4. At the base of the lesser trochanter of the left hip maximum SUV 7.0. A focal area of increased uptake involves the left piriformis muscle without masslike expansion on th e nondiagnostic CT attenuation correction images. Maximum SUV 5.6. IMPRESSION: Hypermetabolic activity associated with the large necrotic right lung mass. Extensive met astatic disease involving the mediastinal lymph nodes, ribs, right adrenal gland, peripancreatic lymph node, retroperitoneal lymph node, left pelvic bones and muscles.
== END 2019-09-13 10:34 | disposition home or self-care (01) ==
LOC: PET 10:33
PROVIDERS: ATTEND Internal Medicine Hematology & Oncology
DX: C34.11 Malignant neoplasm of upper lobe, right bronchus or lung (principal); R91.8 Other nonspecific abnormal finding of lung field; C77.1 Secondary and unspecified malignant neoplasm of intrathoracic lymph nodes; C77.2 Secondary and unspecified malignant neoplasm of intra-abdominal lymph nodes; C79.89 Secondary malignant neoplasm of other specified sites; C79.51 Secondary malignant neoplasm of bone
CPT/HCPCS: 78815; A9552

== ENCOUNTER 2019-10-13 10:46 | Outpatient (CLI) | payer MEDICARE ==
--- NOTE | 2019-10-13 11:54 | ULT ---
LEFT UPPER EXTREMITY VENOUS DOPPLER: Date: 10/13/2019 PROVIDED CLINICAL HISTORY: Left arm swelling. COMPARISON: Chest CT dated 08/28/2019. FINDINGS: Farley scale and color Doppler sonography with spectral analysis was performed of the left internal jug ular, subclavian, axillary, cephalic, basilic, brachial, radial, and ulnar veins. There is luminal ec hogenicity seen involving the visualized distal portions of the left brachiocephalic vein just proxim al to the confluence of the internal jugular and subclavian veins. Flow is seen in this region. The r emainder of the interrogated venous structures of the left upper extremity demonstrate a normal sonog raphic appearance. 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 Pleas e not the entirety of the brachiocephalic vein is not songraphically visible and nonvisualized brachi ocephalic occlusive thrombus is possible given symptoms. Findings communicated to Dr. Banuelos on 10/13/2019 at 1136 hours. CODE CR. POS: OFF
== END 2019-10-13 10:47 | disposition home or self-care (01) ==
LOC: BICULT 10:46
PROVIDERS: ATTEND Internal Medicine Hematology & Oncology
DX: M79.602 Pain in left arm (principal); I82.90 Acute embolism and thrombosis of unspecified vein; M79.89 Other specified soft tissue disorders
CPT/HCPCS: 80053; 82248; 83615; 84100; 84436; 84443; 84550

== ENCOUNTER 2019-11-07 11:10 | Inpatient (IN) | payer MEDICARE ==
[2019-11-07 12:16] LABS: #Lymphocytes 1.4 thou/uL (1.20-3.40); #Monocytes 1.6 thou/uL (0.11-0.59); #Neutrophils 9.8 thou/uL (1.40-6.50); %Basophils 0.2 % (0.0-1.0); %Eosinophils 0.3 % (0.0-10.0); %Monocytes 12.7 % (0.0-10.0); %Neutrophils 75.8 % (42.0-75.0); Hemoglobin 8.8 g/dL (14.0-18.0); Mean Corpuscular HGB CONC 30.1 g/dL (32.0-36.0); Mean Corpuscular Hemoglobin 24.7 pg (27.0-31.0); Mean Corpuscular Volume 82.2 fL (78.0-98.0); Mean Platelet Volume 8.7 fL (7.4-10.4); Platelet Count 353 thou/uL (130-400); RBC Distribution Width 18.2 % (11.5-14.5); Red Blood Cell (RBC) Count 3.54 mill/uL (4.70-6.10); White Blood Cell (WBC) Count 12.9 thou/uL (4.8-10.8)
[2019-11-07 12:25] LABS: ALT (SGPT) 14 U/L (8-55); AST (SGOT) 16 U/L (5-34); Albumin 3.8 g/dL (3.5-5.0); Alkaline Phosphatase 125 U/L (40-110); Anion Gap 15 mmol/L (10-20); BUN (Urea Nitrogen) 30 mg/dL (8.4-25.7); Bilirubin, Total 1.1 mg/dL (0.2-1.2); Calc. Creatinine Clearance 0 mL/min (70-130); Calcium 9.9 mg/dL (7.8-10.44); Carbon Dioxide 31 mmol/L (22-29); Chloride 95 mmol/L (98-107); Estimated GFR-MDRD Greater than 90; Globulin 2.8 g/dL (2.4-3.5); Glucose 85 mg/dL (70-105); Potassium 4.3 mmol/L (3.5-5.1); Protein, Total 6.6 g/dL (6.0-8.3); Sodium 137 mmol/L (136-145)
[2019-11-07] MEDS ORDERED: Ondansetron PF 4 MG/2 ML Vial ONE (12:34)
[2019-11-07 13:45] LABS: Bilirubin Negative (Negative); Blood, Urine Negative (Negative); Clarity Clear (Clear); Glucose, Urine (Dipstick) Normal (Negative); Leukocyte Negative Leu/uL (Negative); Nitrite Negative (Negative); Protein, Urine (Dipstick) 20 mg/dL (Neg-Trace); Urobilinogen 3 mg/dL (Less than 2)
--- NOTE | 2019-11-07 14:22 | CT ---
Exam: CT ANGIOGRAM OF THE CHEST: HISTORY: Status post chemotherapy and radiation therapy for lung cancer. Weight loss. Nausea. COMPARISON: None. CORRELATION: Abdomen and pelvic CT 11/03/2019. TECHNIQUE: CT angiogram of the chest is performed in the axial plane. Three-dimensional reformatted i mages are submitted for interpretation FINDINGS: Mediastinum: Abnormal hypoattenuation in the paratracheal region, right hilum and subcarinal region s uggesting post treatment change with probable lymphadenopathy. Hyperdense focus in the subcarinal region measures 1.2 cm in maximum dimension. Prevascular lymph node measures 1.2 x 0.6 cm. HEART: Upper normal heart size. Mild to moderate pericardial fluid. Aorta: No aneurysm or dissection Upper solid abdominal viscera: Multifocal peripherally enhancing lesions occupying the majority of th e liver suggesting hepatic metastases. Metal Miner lesion in the liver measures 2.8 x 2.5 cm. Multiple distended fluid-filled loops of small bowel. Findings may represent an ileus or obstructive process. Incomplete interrogation. An enlarged right adrenal gland measuring 3.4 x 2.2 cm, compatible with metastases. Hypodense mass in the mid body of the pancreas measuring 2.0 x 2.2 cm, wo rrisome for a primary pancreatic tumor. Adjacent enlarged incompletely evaluated gastrohepatic lymph node measuring 1.2 cm in maximum dimension. Trachea and central bronchi: Trachea and central bronchi are patent. Abnormal soft tissue density in the right paratracheal region. Pleural spaces: Small right-sided pleural effusion. There is a hypodense focus in the right upper lob e without evidence of enhancement, with attenuation coefficient of 26 Hounsfield units. Large cystic lesion measuring 6.3 x 6.4 cm is suspected. A component of the lesion does abut major fissure. Lung parenchyma: Right lung: Aforementioned predominance complex cystic lesion in the right upper lobe. There is splay ing of the vessels. The possibility of a pseudotumor is raised. There is evidence of right perihilar soft tissue fullness. Presumed right hilar metastases/malignancy measuring 2.6 x 1.8 cm. 0. 6 x 0.8 cm solid nodule in the right lower lobe. Left lung: Multiple pleural-based solid densities in the left upper lobe. Metal Miner density lizabeth ures 0.6 cm in maximum dimension. Additional smaller solid nodules are noted in the left upper lobe. There is a pleural-based solid nodule measuring 0.6 x 0.6 cm abutting the major fissure. Additi onal smaller nodules are noted in the left lower lobe. Groundglass opacity left lower lobe may represent atelectasis, aspiration or pneumonia. Pneumothorax: None Osseous structures: Osseous metastases is noted in the T2 vertebral body, T10 vertebral body, T8 vert ebral body. There is a destructive metastatic focus in the posterior left third rib. Pulmonary arteries: Adequate contrast opacification pulmonary arterial system to the level of segment al arteries. No filling defect to suggest pulmonary embolism IMPRESSION: 1. No evidence of pulmonary artery embolism to the level of the segmental arteries. 2. Metastases involving multiple osseous structures and the liver. 3. Metastases involving the mediastinum, right hilum. 4. Multiple prominent small bowel loops due to an ileus or obstructive process. When compared to the CT from 11/03/2019, the overall degree of bowel dilatation has not significantly changed. 5. Incompletely evaluated mass in the body of the pancreas. Refer to recent abdomen and pelvis CT rep ort for further detail. 6. Metastases involving the right adrenal gland. Transcribed Date/Time: 11/07/2019 2:43 PM
[2019-11-07] MEDS ORDERED: Iopamidol 370 76% 100 ML VIAL ONE (15:13)
[2019-11-07] MEDS ORDERED: Morphine 4 MG/ML VIAL SLOW IVP PRN (16:45)
[2019-11-07] MEDS ORDERED: hydrALAZINE 20 MG/ML VIAL SLOW IVP PRN (16:45)
[2019-11-07] MEDS ORDERED: Ondansetron PF 4 MG/2 ML Vial IVP PRN (16:45)
[2019-11-07] MEDS ORDERED: Ketorolac Tromethamine 30 MG/ML VIAL IVP PRN (16:50)
[2019-11-07] MEDS ORDERED: Lidocaine 4% Topical Sol 50 ML BOT ONE (16:54)
--- NOTE | 2019-11-07 17:33 | RAD ---
Exam: Single view of the chest and 2 views of the abdomen HISTORY: Small bowel obstruction COMPARISON: None FINDINGS: 2 views of the abdomen and a single view the chest shows multiple distended loops of small bowel with air-fluid levels seen and upright examination. Contrast is seen in the bladder from recent CT. An NG tube is seen in the stomach. Stool is seen in the colon. The cardiomediastinal silhouette is normal in size. There is a large 8.7 cm mass in the right upper l obe. There is elevation the right hemidiaphragm. IMPRESSION: 1. Dilated loops of small bowel may be secondary to bowel obstruction. 2. Right upper lobe lung mass is concerning for malignancy.
[2019-11-07 19:24] VITALS: BMI 22.5
[2019-11-07] MEDS: Lactated Ringer's 1,000 ML IV SCH (19:30)
--- NOTE | 2019-11-07 20:30 | HP ---
HISTORY OF PRESENT ILLNESS: Dane Duvall is a 59-year-old black male patient, who presents to the emergency room with abdominal pain. Evaluation revealed elevated D-dimer. For this reason, he underwent a CTA with incomplete evaluation of his abdomen. The scan was negative for embolus. The patient states he has not had a bowel movement in 2-1/2 days and has not passed flatus in 2-1/2 days. He is recently hospitalized in August for findings of adenocarcinoma of the lung, 10 cm mass, and metastatic disease. He has an appointment to see Dr. Banuelos. He states he quit smoking a month and a half ago as well as quit drinking alcohol. He smoked half a pack per day prior to that. The patient has multiple metastasis, mediastinal lymph node, right adrenal gland, peripancreatic lymph node, retroperitoneal lymph node, left pelvic bone, and muscle metastasis. Brain MRI on 09/02/2019, left occipital lobe without mass effect, solitary enhancing mass. CT scan of the abdomen and pelvis reveals distended stomach, distended small bowel loops, constipation with decompressed small bowel. He had a CAT scan of the abdomen and pelvis on 11/03/2019 when he presented with similar complaints. He has similar findings and distended bowel loops. SOCIAL HISTORY: Tobacco, none for month and a half, half pack a day prior. Alcohol, none for a month and a half, socially prior. The patient lives with his . I have seen his son for renal failure in the past. MEDICATIONS: 1. Multivitamins. 2. Aspirin. 3. Atorvastatin. 4. Amlodipine. 5. Proventil inhaler. PAST SURGICAL HISTORY: Noncontributory. PAST MEDICAL HISTORY: Hypertension. ALLERGIES: NONE. REVIEW OF SYSTEMS: Ten-point otherwise noncontributory. PHYSICAL EXAMINATION: VITAL SIGNS: 105 heart rate, temperature 97 degrees, and respiratory rate 20. Weight 64 kg. HEAD, EARS, EYES, NOSE, and THROAT: Unremarkable. LUNGS: Clear to auscultation. CARDIAC: Regular rate and rhythm without murmur or gallop. ABDOMEN: Distended, tympanitic. No groin masses. EXTREMITIES: Mild edema. No lesions. LABORATORY DATA: Sodium 137, potassium 4.3, chloride 95, BUN 30, creatinine 0.78, alkaline phosphatase 125. White count 12, hemoglobin 8.8. ASSESSMENT/PLAN: 1. Bowel obstruction by history. CAT scan of the abdomen and pelvis was not complete today. A few days ago, he had a CAT scan on the . We will repeat that tomorrow. We will place an NG tube to low intermittent suction. We will obtain abdominal x-rays today. We will obtain a CT scan of the abdomen and pelvis in the morning with IV contrast. He is likely to need an operative intervention to relieve his bowel obstruction. We will await radiological studies and clinical course. 2. On Xarelto, hold Xarelto. 3. Hypertension. 4. Metastatic lung cancer. He may need a MediPort if he has operative intervention placed at the same anesthetic. ADDENDUM: MEDICATIONS: Medication list is from ER visit four days ago, medications: 1. Amlodipine. 2. Atorvastatin. 3. Xarelto 10 mg a day. 4. Multivitamin. 5. Vitamin D3. 6. Vitamin C. 7. Amlodipine 10 mg a day. 8. Garlic. 9. Aspirin daily. 10. Atorvastatin 20 mg a day. Job ID: [id number]
[2019-11-07] MEDS ORDERED: Chloraseptic Spray 180 ml Bottle PO PRN (20:39)
[2019-11-07] MEDS: Sodium Chloride 0.9% 1,000 ML IV SCH (21:09)
[2019-11-08] MEDS: Lactated Ringer's 1,000 ML IV SCH ×3 (03:00→17:03)
[2019-11-08 05:28] LABS: #Lymphocytes 1.3 thou/uL (1.20-3.40); #Monocytes 1.9 thou/uL (0.11-0.59); #Neutrophils 10.8 thou/uL (1.40-6.50); %Basophils 0.3 % (0.0-1.0); %Eosinophils 0.1 % (0.0-10.0); %Lymphocytes 9.5 % (21.0-51.0); %Monocytes 13.6 % (0.0-10.0); %Neutrophils 76.5 % (42.0-75.0); Hemoglobin 8.7 g/dL (14.0-18.0); Mean Corpuscular HGB CONC 30.9 g/dL (32.0-36.0); Mean Corpuscular Volume 80.9 fL (78.0-98.0); Mean Platelet Volume 9.6 fL (7.4-10.4); Platelet Count 345 thou/uL (130-400); RBC Distribution Width 18.6 % (11.5-14.5); Red Blood Cell (RBC) Count 3.48 mill/uL (4.70-6.10); White Blood Cell (WBC) Count 14.1 thou/uL (4.8-10.8)
[2019-11-08 05:53] LABS: ALT (SGPT) 14 U/L (8-55); AST (SGOT) 21 U/L (5-34); Albumin 3.5 g/dL (3.5-5.0); Alkaline Phosphatase 118 U/L (40-110); Anion Gap 21 mmol/L (10-20); BUN (Urea Nitrogen) 28 mg/dL (8.4-25.7); Bilirubin, Total 0.9 mg/dL (0.2-1.2); Calc. Creatinine Clearance 105 mL/min (70-130); Calcium 9.4 mg/dL (7.8-10.44); Carbon Dioxide 23 mmol/L (22-29); Chloride 99 mmol/L (98-107); Estimated GFR-MDRD Greater than 90; Globulin 2.9 g/dL (2.4-3.5); Potassium 3.7 mmol/L (3.5-5.1); Protein, Total 6.4 g/dL (6.0-8.3); Sodium 139 mmol/L (136-145)
[2019-11-08 05:57] LABS: Glucose 57 mg/dL (70-105)
[2019-11-08] MEDS: Dextrose 5%-Lactated Ringers 1,000 ML IV SCH ×3 (06:13→20:14)
[2019-11-08] MEDS ORDERED: Dextrose 50% Abboject 50 ML SYRINGE SLOW IVP SCH (06:15)
--- NOTE | 2019-11-08 09:06 | RAD ---
ABDOMEN 2 VIEWS: Date: 11/08/2019 HISTORY: Small bowel obstruction. Comparison radiograph dated 11/07/2019. FINDINGS: Multiple air-fluid levels throughout the abdomen. No pneumoperitoneum is appreciated. There appears to be free fluid in the pelvis. IMPRESSION: Findings of continued small bowel obstruction. POS: [facility]
[2019-11-08] MEDS: Pantoprazole 40 MG VIAL IVP SCH (09:54)
--- NOTE | 2019-11-08 14:06 | RAD ---
Exam: Gastric and small bowel HISTORY: Evaluate for small bowel obstruction COMPARISON: None FINDINGS: Initial supine and lateral decubitus abdomen radiograph was used for the supervisor electric motor testing images. Ther e is a separate report for supervisor electric motor testing images Gastrografin was administered. There are multiple markedly distended loops of small bowel. After 3 ho urs and 20 minutes, contrast does not opacify the colon. There is evidence of contrast in multiple distended loops of small bowel. Additional air-filled loops of small bowel are identified. IMPRESSION: High-grade small bowel obstruction. Results study conveyed to Dr. Fulton 11/08/2019 2:02 PM Code CR
[2019-11-08] MEDS ORDERED: Meropenem 2 GM in Sodium Chloride 0.9% 100 ML IVPB SCH (14:15)
[2019-11-08] MEDS ORDERED: MD-Gastroview 120 ML BOT ONE (14:46)
[2019-11-08] MEDS ORDERED: CEFAZOLIN 2 GM in Premix Bag 1 BAG IVPB SCH (15:45)
[2019-11-08] MEDS ORDERED: Sodium Chloride 0.9% 1,000 ML IV SCH (15:45)
--- NOTE | 2019-11-08 16:09 | PRG ---
DATE OF SERVICE: 11/08/2019 SUBJECTIVE: Mr. Duvall is doing well today. The patient has undergone a small bowel follow through, and there is no progression after 3 hours. NG tube returned to suction. He was vomiting during the procedure and study. White count 14 and hemoglobin 8.7. Basic metabolic profile normal. Glucose this morning 57, changed to D5 IV fluid, given amp of D50. OBJECTIVE: VITAL SIGNS: Temperature 97.6 degrees, heart rate 119, respiratory rate 16, blood pressure 124/89. NG tube output overnight 1300. Urine output is good. LUNGS: Clear to auscultation. CARDIAC: Regular rate and rhythm. No murmur or gallop. ABDOMEN: Distended, tympanitic. ASSESSMENT AND PLAN: 1. Small bowel obstruction. I have recommended laparotomy. Procedures indicated, possible bowel resection, risks of infection, bleeding, reoperation discussed, he consents. 2. Anticoagulation with Xarelto. We will postpone this till tomorrow and hold office 48 hours. 3. Metastatic lung cancer. We will need a MediPort placed. Questions answered. The patient understands risks and benefits. 4. 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 Job ID: [id number]
[2019-11-09 05:10] LABS: ALT (SGPT) 13 U/L (8-55); AST (SGOT) 21 U/L (5-34); Albumin 3.4 g/dL (3.5-5.0); Alkaline Phosphatase 104 U/L (40-110); Anion Gap 15 mmol/L (10-20); BUN (Urea Nitrogen) 23 mg/dL (8.4-25.7); Bilirubin, Total 0.8 mg/dL (0.2-1.2); Calc. Creatinine Clearance 108 mL/min (70-130); Calcium 9.7 mg/dL (7.8-10.44); Carbon Dioxide 29 mmol/L (22-29); Chloride 104 mmol/L (98-107); Estimated GFR-MDRD Greater than 90; Globulin 2.7 g/dL (2.4-3.5); Glucose 122 mg/dL (70-105); Potassium 3.8 mmol/L (3.5-5.1); Protein, Total 6.1 g/dL (6.0-8.3); Sodium 144 mmol/L (136-145)
[2019-11-09] MEDS: Lactated Ringer's 1,000 ML IV SCH ×2 (05:34→09:10)
[2019-11-09 06:16] LABS: Band 33 % (5-11); Hemoglobin 8.5 g/dL (14.0-18.0); Hypochromia SLIGHT = 6-15 cells (100X) (0-5/hpf); Lymphocytes 6 % (21-51); MDiff Complete? YES; Mean Corpuscular HGB CONC 30.6 g/dL (32.0-36.0); Mean Corpuscular Hemoglobin 25.4 pg (27.0-31.0); Mean Corpuscular Volume 83.1 fL (78.0-98.0); Mean Platelet Volume 10.4 fL (7.4-10.4); Metamyelocyte 1 % (0-0); Monocytes 11 % (0-10); Neutrophil 49 % (42-75); Platelet Count 263 thou/uL (130-400); Platelet Morphology Comment Appears Adequate; RBC Distribution Width 18.5 % (11.5-14.5); Red Blood Cell (RBC) Count 3.34 mill/uL (4.70-6.10); White Blood Cell (WBC) Count 15.9 thou/uL (4.8-10.8)
[2019-11-09 07:39] VITALS: BP 121/82
[2019-11-09] MEDS: Dextrose 5%-Lactated Ringers 1,000 ML IV SCH ×4 (09:06→20:55)
[2019-11-09] MEDS: Pantoprazole 40 MG VIAL IVP SCH (09:10)
[2019-11-09] MEDS ORDERED: PROPOFOL 200 MG/20 ML VIAL ONE (09:33)
[2019-11-09] MEDS ORDERED: Succinylcholine Chloride 20 MG/ML 10 ml SYRINGE FS ONE (09:33)
[2019-11-09] MEDS ORDERED: Lidocaine 1% PF 5 ML VIAL ONE (09:33)
[2019-11-09] MEDS ORDERED: PHENYLEPHRINE-NS 100 MCG/ML 10 ML SYRINGE ONE (09:33)
[2019-11-09] MEDS ORDERED: Ondansetron PF 4 MG/2 ML Vial ONE ×2 (09:33→15:07)
[2019-11-09] MEDS ORDERED: Rocuronium Bromide 10 MG/ML (10ML VIAL) ONE (09:33)
[2019-11-09] MEDS ORDERED: Bupivacaine HCl 0.5%/Epinephrine 1:200,000/PF 30 ml Vial ONE (09:33)
[2019-11-09] MEDS ORDERED: Fentanyl 250 MCG/5 ML VIAL ONE (12:29)
[2019-11-09] MEDS ORDERED: Phenylephrine 10 MG/ML VIAL ONE (13:46)
[2019-11-09] MEDS ORDERED: SUGAMMADEX SODIUM 200 MG/2 ML VIAL ONE (14:13)
[2019-11-09] MEDS ORDERED: Ondansetron HCl/PF 4 MG/2 ML Vial IVP PRN (14:42)
[2019-11-09] MEDS ORDERED: Promethazine HCl 25 MG/ML VIAL SLOW IVP PRN (14:42)
[2019-11-09] MEDS ORDERED: PACU-Morphine 4MG/ML VIAL SLOW IVP PRN (14:42)
[2019-11-09] MEDS ORDERED: Meperidine HCl/PF 25 MG/ML VIAL SLOW IVP PRN (14:42)
[2019-11-09] MEDS ORDERED: Promethazine HCl 25 MG/ML VIAL IM PRN (14:42)
[2019-11-09] MEDS ORDERED: Morphine Sulfate 2 MG/ML SYRINGE SLOW IVP PRN (14:42)
[2019-11-09] MEDS ORDERED: HYDROmorphone 2 MG/ML VIAL SLOW IVP PRN (14:42)
--- NOTE | 2019-11-09 14:44 | PQF ---
MINDI DELACRUZ RICHARD D MD [id number] B- [id number] CLINICAL DOCUMENTATION IMPROVEMENT CLARIFICATION FORM: ICD-10 Updated PLEASE DO AN ADDENDUM TO THE PROGRESS NOTE WITH ANY DOCUMENTATION UPDATES OR ADDITIONS AND CARRY THROUGH TO DC SUMMARY. THANK YOU. DATE: 11/09/2019, 11/11/2019 ATTN: DR. Tip BELLA Please exercise your independent, professional judgment in responding to the clarification form. Clinical indicators are provided on the bottom of this form for your review. Please check appropriate box(s): [ yes] Acute Respiratory Failure: [ yes] with Hypoxia[ yes ] with Hypercapnia [ ] Acute On Chronic Respiratory Failure: [ ] with Hypoxia [ ] with Hypercapnia [ ] Acute Respiratory Failure due to: (etiology) [ ] Chronic Respiratory Failure only [ ] with Hypoxia [ ] with Hypercapnia [ yes] Other diagnosis __metastatic lung cancer with bowel obstruction & SVC & trachea obstruction [ ] Unable to determine In addition, please specify: Present on Admission (POA): [ yes ] Yes [ ] No [ ] Unable to determine For continuity of documentation, please document condition throughout progress notes and discharge summary. Thank You. CLINICAL INDICATORS - SIGNS / SYMPTOMS / LABS / RESULTS AND LOCATION IN MR ED REPORT: PULSE 104-109, 91-96% RA//PT REPORTS HX OF LUNG CX, FINISHED RADIATION AND IS TO BEGIN CHEMO ON OF THIS MONTH. FINAL DX: SBO, LUNG CA W [place], MASS ON ADRENAL GLAND. 11/06 PULSE 116 > 105 > 112 11/07 PULSE 109 > 110 > 111 > 116 > 119 > 118 11/07 RESP 24 11/07 O2 SAT 90% ON 2L/NC 11/09 PN (NEAL) I WAS SUMMONED TO THE ICU. THE PT WAS SITTING UP IN CHAIR DOING WELL, COUGHED A COUPLE TIMES AD THEN QUIT BREATHING. CHEST COMPRESSIONS WERE ONGOING AND EPINEPHRINE WAS GIVEN. HE WAS PULSELESS. THE ETT WAS PASSED THROUGH HIS CORDS WITH FORCE TO SECURE AN AIRWAY. HE HAD AN UNBELIEVABLE AMOUNT OF UPPER AIRWAY EDEMA, MY BEST GUESS IS THAT HE COUGHED UP A MUCUS PLUG AND COULD NOT CLEAR IT BECAUSE OF HIS UPPER AIRWAY EDEMA AND PROBABLE COEXISTENT VOCAL CORD DYSFUNCTION ASSOCIATED WITH HIS WIDELY METASTATIC MALIGNANCY ON TOP OF SUPERIOR VENA CAVA SYNDROME. RISK: METASTATIC LUNG CANCER, HX OF SMOKING ( H&P/JENA) 11/08 TREATMENTS: DUONEB 3 ML (ED/ 11/06) SUPPLEMENTAL OXYGEN (11/07-PRESENT) BRONCHOSCOPY W INTUBATION (11/09/) Acute Respiratory Failure: ABG pH < 7.35 or > 7.45; Decreased oxygen saturation (<90% room air or < 95% on oxygen); PCO2 > 50 mm Hg; PO2 < 60 mm Hg; Labored or rapid respirations ARDS: Dx Criteria [[place] ARDS]: Respiratory symptoms within one week of a known clinical insult (e.g. shock, infection, surgery, trauma) Bilateral opacities in CXR/Chest CT not due to CHF or fluid THANK YOU! TEJAS (This form is maintained as a part of the permanent medical record) 2014 [employer] All Rights Reserved TENISHA [email or web address] [phone] MTDD
[2019-11-09] MEDS ORDERED: Sodium Chloride 0.9% 1,000 ML IV SCH ×2 (14:45→18:30)
[2019-11-09] MEDS ORDERED: Fentanyl 100 MCG/2 ML VIAL ONE ×2 (14:46→15:13)
--- NOTE | 2019-11-09 14:51 | OP ---
DATE OF PROCEDURE: 11/09/2019 PREOPERATIVE DIAGNOSES: Metastatic lung cancer with small bowel obstruction secondary to metastatic disease, complete; superior vena cava partial obstruction; edematous upper extremities; poor IV access. POSTOPERATIVE DIAGNOSES: Metastatic lung cancer with small bowel obstruction secondary to metastatic disease, complete; superior vena cava partial obstruction; edematous upper extremities; poor IV access. PROCEDURES PERFORMED: 1. Exploratory laparotomy, evacuation of ascites (from metastatic lung cancer and bowel obstruction) with segmental resection of three segments of small bowel with primary anastomosis. 2. Right subclavian vein triple-lumen catheter. ANESTHESIA: General, TAP block. Note, the patient had numerous metastatic foci in the mesentery, small bowel, liver, and abdominal wall. DESCRIPTION OF PROCEDURE: The patient was taken to the operating room, where under general anesthesia, right chest was prepared with ChloraPrep and draped in routine fashion. Seldinger technique used to place a triple-lumen catheter, removing the J-wire, securing the catheter with 3-0 silk, sterile dressing applied. The abdomen was clipped of hair, prepared with ChloraPrep, and draped in routine fashion. Incision was made in the midline, centered about the umbilicus, carried down through the skin and subcutaneous tissue and entered the abdominal cavity sharply. Ascites was evacuated. There was a complete bowel obstruction at the terminal ileum with complete decompression of the terminal ileum and marked distention of the proximal bowel. There were multiple small bowel implants. There was one segment of small bowel adherent to itself with a tumor implant. This was taken down with sharp 10 blade . There was small leakage in one of the tumor nodules, this was oversewn with 3-0 silk. Minimal spillage occurred. The small bowel contents milked retrograde out the NG tube, evacuated 3 L of small bowel contents, decompressing the small bowel. There were three segments of small bowel that required resection, one as described where the tumor had been divided adherent to another segment of bowel and this was leaking, the other area where the obstructive process was. These three segments of small bowel were resected, dividing the mesentery with the LigaSure, dividing the small bowel with the stapler, completing the anastomosis with a stapler technique. Mesenteric defect was closed with 3-0 silk. Good hemostasis noted. Good lumens palpated. No leaks occurred as all were checked. Abdominal cavity was thoroughly irrigated with saline solution. Irrigant evacuated. Hemostasis noted. Midline fascia closed with continuous suture of #1 PDS. Skin and subcutaneous tissues irrigated. Skin approximated with mike. Sterile dressing applied. Job ID: [id number]
--- NOTE | 2019-11-09 15:05 | RAD ---
CHEST 1 VIEW: HISTORY: Small bowel obstruction. Comparison: 08/28/2019. FINDINGS: Cardiac silhouette:Normal cardiac silhouette. Aorta: Atherosclerosis of the aorta. Pulmonary vessels: Normal. Costophrenic angles: Clear. Subdiaphragmatic: There is evidence of pneumoperitoneum, compatible with recent laparotomy. Lines and tubes: Nasogastric tube terminates beyond the diaphragm. Distal tip is not seen. Right-side d vascular catheter with the distal tip projecting over the right atrium. Lungs: Persistent masslike opacity involving the right upper lobe. Lung volumes are diminished which may be due to atelectasis. A component of aspiration or pneumonia in the right lung base cannot be excluded. Pneumothorax: None. Osseous abnormalities: None. IMPRESSION: 1. Findings presumed to be due to recent laparotomy. Pneumoperitoneum. 2. Diminished lung volumes, likely due to atelectasis. Aspiration or pneumonia in the right lung base cannot be excluded. 3. Interval placement of a right-sided vascular catheter with the distal tip projecting over the righ t atrium. 4. Stable rounded mass in the right upper lobe. Transcribed Date/Time: 11/09/2019 3:25 PM
--- NOTE | 2019-11-09 15:20 | PRG ---
DATE OF SERVICE: 11/09/2019 SUBJECTIVE: Mr. Duvall was seen at 0830 this morning. Small bowel follow-through. No progression after 3 hours. The patient had nausea and vomiting. Tube was connected back to suction. He has not passed flatus or stool. OBJECTIVE: VITAL SIGNS: Temperature 97.4 degrees, pulse 100, respiratory rate 16, and blood pressure 121/82. NG tube output overnight 3.3 L. LUNGS: Clear to auscultation. CARDIAC: Regular rate and rhythm without murmur or gallop. ABDOMEN: Distended, tympanitic. LABORATORY DATA: Sodium 144, potassium 3.8, BUN 23, creatinine 0.67, glucose 122. This morning, his hemoglobin is 8.5. White count 15.9. ASSESSMENT AND PLAN: 1. Small bowel obstruction secondary to metastatic cancer. Plan laparotomy today. Questions answered. He understands risks and benefits of the procedure. We will plan general anesthesia and TAP block. I have discussed TAP block with him. He is agreeable. I talked with Oncology and they are not planning chemotherapy, thus MediPort will not be placed. 2. Superior vena cava encroachment with arm edema, on anticoagulation, held preoperatively. Job ID: [id number]
[2019-11-09] MEDS ORDERED: Albumin 25% 100 ML ONE ×2 (16:34→17:34)
[2019-11-09 17:14] LABS: Actual Bicarbonate (HCO3v) 29 mEq/L (22-28); Base Excess 0.4 mEq/L (-2.0 to +3.0); Calcium, Ionized 1.22 mmol/L (1.16-1.32); Chloride (ABG LAB) 105 mmol/L (98-106); Hemoglobin (Hb) 9.8 g/dL (13.1-17.2); Sodium 143.5 mmol/L (133-146)
[2019-11-09 17:15] LABS: pH (venous) 7.22 (7.32-7.43)
--- NOTE | 2019-11-09 17:31 | RAD ---
Chest one view HISTORY: Congestion. Dyspnea. COMPARISON: 11/09/2019. Earlier exam on the same date. FINDINGS: Right cardiac margin remains obscured by an elevated right hemidiaphragm and atelectasis at the right lung base that has increased since the prior study. Right pleural fluid has also increased. Mediastinum remains midline. Nasogastric tube and right subclavian central venous catheter remain in place. Large rounded right upper lung mass similar in appearance to the previous study. Bone lesions, including destruction of the posterior aspect of the left third rib, again demonstrated . Free air under the diaphragm appears stable. IMPRESSION : Slight interval increase in right pleural fluid and bibasilar atelectasis. Peritoneum and other findings are otherwise stable.
[2019-11-09] MEDS ORDERED: Sodium Chloride 0.9% 30 ML ONE (17:45)
[2019-11-09 18:00] LABS: Hemoglobin 8.4 g/dL (14.0-18.0); Mean Corpuscular HGB CONC 30.2 g/dL (32.0-36.0); Mean Corpuscular Hemoglobin 24.9 pg (27.0-31.0); Mean Corpuscular Volume 82.5 fL (78.0-98.0); Mean Platelet Volume 8.7 fL (7.4-10.4); Platelet Count 286 thou/uL (130-400); RBC Distribution Width 18.6 % (11.5-14.5); Red Blood Cell (RBC) Count 3.39 mill/uL (4.70-6.10)
[2019-11-09 18:09] LABS: Actual Bicarbonate (HCO3a) 29.1 mEq/L (22-28); Base Excess (BEa) 3.7 mEq/L (-2.0 to +3.0); CO2 Tension 48.5 mmHg (35.0-45.0); Calcium, Ionized 1.17 mmol/L (1.12-1.30); Carboxyhemoglobin (COHb) 1.8 gm% (0.0-3.0); Hemoglobin (Hb) 8.3 g/dL (14.0-18.0); O2 Tension (PaO2) 73.8 mmHg (> 80.0); Potassium - ABG Lab 3.23 mmol/L (3.70-5.30)
[2019-11-09 18:16] LABS: ALV-art Gradient 150.775 (0-20); Puncture Site RR
[2019-11-09 18:17] LABS: Anisocytosis SLIGHT = 6-15 cells (100X) (0-5/hpf); Band 35 % (5-11); Hypochromia SLIGHT = 6-15 cells (100X) (0-5/hpf); Lymphocytes 25 % (21-51); MDiff Complete? YES; Metamyelocyte 3 % (0-0); Microcytosis SLIGHT = 6-15 cells (100X) (0-5/hpf); Monocytes 7 % (0-10); Neutrophil 28 % (42-75); Nucleated RBC 4 % (0); Ovalocytes SLIGHT = 2-5 cells (100X) (0-1/hpf); Platelet Morphology Comment Appears Adequate; Poikilocytosis SLIGHT = 6-15 cells (100X) (0-5/hpf); Polychromasia MODERATE = 3-4 cells (100X) (0-2/hpf); Reactive Lymphocytes 2 % (0-10); Schistocytes SLIGHT = 2-5 cells (100X) (0-1/hpf); Target Cells MODERATE= 6-15 cells (100X) (0-1/hpf); White Blood Cell (WBC) Count 3.1 thou/uL (4.8-10.8)
[2019-11-09] MEDS ORDERED: Norepinephrine 8 MG/0.9% NS 250 ML IVPB SCH (18:20)
[2019-11-09] MEDS ORDERED: Albumin 25% 25 GM/100 ML BOT IVPB SCH (18:30)
[2019-11-09] MEDS ORDERED: Enoxaparin Sodium 40 MG/0.4 ML SYRINGE SC SCH (21:00)
--- NOTE | 2019-11-09 21:13 | CON ---
DATE OF CONSULTATION: 11/09/2019 HISTORY OF PRESENT ILLNESS: Mr. Duvall is a pleasant 59-year-old male followed by my associate, Dr. Freitas. He has lung cancer. He is a little slow to wake up apparently today after presenting requiring a laparotomy. Initial venous blood gas showed acidemia, but the followup arterial blood gas on BiPAP showed normalization of his pH. He apparently had small-bowel obstruction secondary to metastatic cancer. He also has an early superior vena cava syndrome apparently. PAST MEDICAL HISTORY: Otherwise remarkable for: 1. Long history of smoking, but he has stopped. 2. He has mediastinal lymphadenopathy and adrenal gland peripancreatic lymphadenopathy and retroperitoneal lymph nodes as well as pelvic bone and muscle metastases. He has a small occipital lobe enhancing mass on MRI. He is currently being followed by Dr. Banuelos. 3. Past medical history is remarkable for hypertension, otherwise. FAMILY HISTORY: Negative for lung disease in early age. REVIEW OF SYSTEMS: Ten points otherwise negative except for complaints of abdominal soreness, but he says it is tolerable. PHYSICAL EXAMINATION: VITAL SIGNS: He is afebrile. Heart rate is 100, respiratory rate is in the teens, oximetry is 93% to 94% on BiPAP, and blood pressure 121/82. HEAD AND NECK: Unremarkable. LUNGS: Clear anteriorly. HEART: Regular rhythm. ABDOMEN: Soft and mildly tender as expected postoperatively. EXTREMITIES: Without clubbing, cyanosis, or edema. NEURO: Grossly nonfocal. IMPRESSION AND PLAN: Status post laparotomy for bowel obstruction. Apparently, clinically stable on bilevel positive airway pressure. Probably in the morning , we wean him off bilevel positive airway pressure. He will receive nebulized treatments around the clock just to hopefully minimize atelectasis. Obviously, his prognosis is quite guarded given the underlying problem. TIME SPENT: This is a 70-minute consult, 50% of time was spent on the unit in coordinating care. Job ID: [id number] [facility]ITALCora
[2019-11-09] MEDS: Sodium Chloride 0.9% 500 ML IV SCH (21:33)
[2019-11-10] MEDS: Albumin 25% 25 GM/100 ML BOT IVPB SCH ×3 (00:03→11:45)
[2019-11-10] MEDS: Dextrose 5%-Lactated Ringers 1,000 ML IV SCH ×5 (00:44→15:58)
[2019-11-10] MEDS: Sodium Chloride 0.9% 500 ML IV SCH (02:03)
[2019-11-10] MEDS: Morphine 2 MG/ML SYRINGE SLOW IVP PRN ×3 (07:34→13:22)
[2019-11-10 08:21] LABS: Hemoglobin 8.5 g/dL (14.0-18.0); Mean Corpuscular HGB CONC 31.4 g/dL (32.0-36.0); Mean Corpuscular Hemoglobin 26.2 pg (27.0-31.0); Mean Corpuscular Volume 83.3 fL (78.0-98.0); Mean Platelet Volume 9.2 fL (7.4-10.4); Platelet Count 223 thou/uL (130-400); RBC Distribution Width 17.8 % (11.5-14.5); Red Blood Cell (RBC) Count 3.24 mill/uL (4.70-6.10); White Blood Cell (WBC) Count 11.8 thou/uL (4.8-10.8)
[2019-11-10 08:37] LABS: Anion Gap 11 mmol/L (10-20); BUN (Urea Nitrogen) 22 mg/dL (8.4-25.7); Calc. Creatinine Clearance 89 mL/min (70-130); Calcium 8.8 mg/dL (7.8-10.44); Carbon Dioxide 27 mmol/L (22-29); Chloride 109 mmol/L (98-107); Estimated GFR-MDRD Greater than 90; Glucose 146 mg/dL (70-105); Magnesium 1.6 mg/dL (1.6-2.6); Potassium 3.2 mmol/L (3.5-5.1); Sodium 144 mmol/L (136-145)
[2019-11-10] MEDS: Pantoprazole 40 MG VIAL IVP SCH (09:13)
[2019-11-10 09:22] LABS: Band 62 % (5-11); Hypochromia MODERATE=16-30 cells (100X) (0-5/hpf); Lymphocytes 13 % (21-51); MDiff Complete? YES; Metamyelocyte 3 % (0-0); Monocytes 7 % (0-10); Neutrophil 14 % (42-75); Platelet Morphology Comment Appears Adequate; Polychromasia MODERATE = 3-4 cells (100X) (0-2/hpf); Reactive Lymphocytes 1 % (0-10); Target Cells SLIGHT = 2-5 cells (100X) (0-1/hpf)
[2019-11-10] MEDS ORDERED: Sodium Bicarb 50 MEQ/50 ML Abboject 8.4% SYRINGE ONE (09:33)
[2019-11-10] MEDS: Sodium Chloride 0.9% 1,000 ML IV SCH (10:47)
[2019-11-10] MEDS ORDERED: Sodium Chloride 0.9% 1,000 ML IV SCH (11:15)
--- NOTE | 2019-11-10 11:43 | CON ---
DATE OF CONSULTATION: REASON FOR CONSULT: Lung cancer. HISTORY OF PRESENT ILLNESS: Mr. 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 He also has a small asymptomatic brain met. He was diagnosed in August and having problems with SVC syndrome, so he underwent radiation, which was completed on October 12. We had been in the process of obtaining Keytruda from the manufacture for him as he has no outpatient insurance and have unable to obtain this medication. He unfortunately began to have abdominal discomfort, pain and nausea, and was admitted for further workup. He underwent a CT of the abdomen and pelvis, that showed multiple lesions in the liver consistent with metastatic disease, largest 2.8 x 2.5 cm. He had subcarinal and prevascular lymphadenopathy. He had multiple distended fluid-filled loops of the small bowel consistent with obstruction. He had a 3.4 x 2.2 cm right adrenal mass. There was also a lesion in the mid body of the pancreas. The right upper lobe mass measures 6.3 x 6.4 cm. There were noted bone lesions. He underwent an exploratory laparotomy with segmental resection of 3 segments of the small bowel with primary anastomosis. He is currently resting in the ICU. He remained on BiPAP overnight, but this has been removed. He has an NG tube in place. He does complain of abdominal pain and discomfort. PAST MEDICAL HISTORY: 1. 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 2. SVC syndrome, resolving with radiation. 3. Solitary brain met. 4. History of extensive tobacco and alcohol use. 5. COPD. 6. Hypertension. PAST SURGICAL HISTORY: Exploratory laparotomy. ALLERGIES: NO KNOWN DRUG ALLERGIES. HOME MEDICATIONS: 1. Norvasc. 2. Vitamin C. 3. Lipitor. 4. Multivitamin. 5. Proventil. FAMILY HISTORY: Noncontributory. SOCIAL HISTORY: , has 3 children, lives with his spouse, long-term smoker, former alcohol use. No illicit drug use. REVIEW OF SYSTEMS: 10-point review of systems is negative except for noted in HPI. PHYSICAL EXAMINATION: VITAL SIGNS: Temperature is 98.8, pulse is 97, respiratory rate is 22, and blood pressure is 112/80. He is 98% on 30% FiO2. GENERAL: This is a chronically ill-appearing male, in mild abdominal discomfort. HEENT: Normocephalic and atraumatic. Pupils are equal and reactive to light. NECK: Supple. CV: Regular rate and rhythm. LUNGS: Diminished. ABDOMEN: Tender. His NG tube in place. EXTREMITIES: He has 2+ edema in his hands and feet. NEUROLOGIC: He is nonfocal. PSYCHIATRIC: He is alert, oriented, and appropriate. PERTINENT LABS AND X-RAYS: Current WBCs 11.8, hemoglobin 8.5, hematocrit 27, and platelet count 223. He has 14% neutrophils, 62% bands, and 13% lymphs. Sodium 144, potassium 3.2, chloride 109, CO2 of 27, BUN 22, creatinine 0.82, calcium 8.8, and magnesium 1.6. Bilirubin 0.8, AST 21, ALT 13, and alk phos 104. Serum total protein 6.1, albumin 3.4, and globulin 2.7. ASSESSMENT: 1. Stage IV metastatic lung cancer. 2. Small bowel obstruction secondary to metastatic disease, status post laparotomy with segmental resection. 3. Superior vena cava syndrome, status post radiation. DISCUSSION: The patient is recovering in the ICU. He has an NG tube in place. Postoperative care provided by Dr. Fulton. He was approved for IV Keytruda this week and will resume once he has recovered from his surgery. We will update his daughter and we will follow along with his hospital course. Thank you for the consult. Job ID: [id number]
--- NOTE | 2019-11-10 12:39 | PRG ---
DATE OF SERVICE: 11/10/2019 SUBJECTIVE: Mr. Duvall postoperatively yesterday in the PACU spent 3 hours. He became hypercarbic, respiratory depression, was put on BiPAP. He was hypotensive given fluid boluses. Urine was very concentrated. He has had 3.3 L out of his NG tube after Gastrografin small bowel follow-through, and then intraoperatively, he had another 2 L milked out. He is obviously very dry. When he presented, he had acute kidney injury. This improved with hydration and normalize renal function. The patient postoperatively yesterday was put in the intensive care unit, has come off BiPAP. He is mentating normally. His blood pressure is normal now. He was placed on Levophed last night and suffered a tachyarrhythmia, after which Levophed was discontinued. His MAPS were above 72 to 75 and Levophed was discontinued. His blood pressure is even normalized to 120 systolic by now. He preoperatively had a hemoglobin of 10, but was very dehydrated, and after surgery and hydration, his hemoglobin was rechecked, it was 8.3 as he was hypotensive, he was given a unit of blood and this helped his blood pressure. This morning, his hemoglobin is 8.5, white count 11.8. His urine output is improved to 20 to 25 per hour. He was given another liter fluid bolus. His CVP was 0 and urine output was marginal. Sodium 144, potassium 3.2, chloride 109, BUN 22, creatinine 0.82. The patient's NG tube is to suction and is put out 600 postoperatively. OBJECTIVE: LUNGS: Clear to auscultation. No wheezing. CARDIAC: Regular rate and rhythm. ABDOMEN: Soft, firm. EXTREMITIES: Unremarkable. LABORATORY DATA: Sodium 144, potassium 3.2, BUN 22, creatinine 0.82. Hemoglobin 8.5, white count 11.8. ASSESSMENT AND PLAN: 1. Doing well. We would recommend continue to monitor his CBC and electrolytes. I do not think he needs another transfusion. He had 1 unit of blood last night. 2. Severe dehydration, improved. We will give another liter fluid bolus. 3. Metastatic lung cancer with large lung mass and venous outflow impairment by mediastinal mass and mediastinal lymphadenopathy. A central line is in place. Continue monitor in ICU. Appreciate Dr. Vazquez's critical care help. Job ID: [id number]
--- NOTE | 2019-11-10 14:19 | PRG ---
DATE OF SERVICE: 11/10/2019 SUBJECTIVE: Mr. Duvall is afebrile. OBJECTIVE: VITAL SIGNS: Heart rate 88, respiratory rate 24, oximetry is in the high 90s on 3 L, blood pressure is 124/77. Intake and output were positive 2259. LUNGS: Clear. HEART: Regular rhythm. S1 and S2 normal. ABDOMEN: Still mildly tender. EXTREMITIES: Without asymmetry or edema. LABORATORY DATA: White count 11.8, hemoglobin 8.5, platelets 223. Sodium 144, potassium 3.2, chloride 109, bicarb 27, BUN 22, creatinine 0.82. IMPRESSION: 1. Status post emergent laparotomy. 2. Metastatic lung cancer. 3. Deconditioning. Overall, he appears to be clinically stable. We will try to switch him from BiPAP to high-flow oxygen today. CRITICAL CARE TIME: 30 minutes excluding procedures. Job ID: [id number] MTDD
[2019-11-10] MEDS ORDERED: EPINEPHrine 1 MG/10 ML Abboject SYRINGE ONE (14:47)
[2019-11-10] MEDS ORDERED: Sodium Bicarb 50 MEQ/50 ML VIAL ONE (14:54)
--- NOTE | 2019-11-10 15:36 | PRG ---
DATE OF SERVICE: 11/10/2019 Mr. Duavll was doing well, sat up in a chair for 3 hours, got back in bed, was leaning back, coughed a couple of times and then quit breathing. I was summoned to the ICU. Chest compressions were ongoing and epinephrine was given. He was pulseless. Multiple attempts with two different blades and bronchoscope were unsuccessful at visualizing his vocal cords. The GlideScope was passed and with a great deal of difficulty, the endotracheal tube was passed through his cords with force to secure an airway. He had an unbelievable amount of upper airway edema. 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 He was resuscitated. I contacted his daughter in [place]. I have explained that we should not code him again should he decline. He appears to be stabilizing at this point in time. I explained to her that we would be saving him to of a widespread metastatic malignancy and that this most likely would not end well. She informed me that she understood and was supportive of our recommendations. He therefore be a do not resuscitate patient. We will continue to support him. If he survives the night, then we will have to discuss with the family, issues with care versus withdrawal. This was a long difficult code, so I would be surprised if he awakened from this. ADDENDUM: The above was discussed with the nurse practitioner for Dr. Banuelos as well as Dr. Fulton and they are supportive of my recommendation for him to be a do not resuscitate patient as well. This is sadly a hopeless situation. It was hoped that an operation would get him a few months down the road, but it is unlikely for that to occur. Job ID: [id number]
[2019-11-10] MEDS ORDERED: Norepinephrine 8 MG/0.9% NS 250 ML IVPB SCH (16:48)
[2019-11-10 17:11] VITALS: TEMP 97.7
--- NOTE | 2019-11-11 11:29 | DIS ---
DATE OF ADMISSION: 11/07/2019 DATE OF DISCHARGE: 11/10/2019 DATE OF : 11/10/2019. HOSPITAL DIAGNOSES: 1. Metastatic lung cancer. 2. Small bowel obstruction secondary to metastatic lung cancer. 3. 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 4. Airway obstruction secondary to metastatic lung cancer. 5. History of tobacco abuse. 6. Dehydration. HISTORY: This is a 59-year-old male with known history of metastatic lung cancer, adenocarcinoma of the lung, 10 cm mass, metastatic disease with upper edema, head and neck, upper extremities, some superior vena cava obstruction, presents with bowel obstruction symptoms, undergoing a CTA because of elevated D-dimer despite his abdomen being distended and having nausea and vomiting. An incomplete abdominal CAT scan was obtained, limited findings suggestive of bowel obstruction with his history of metastatic disease, he is treated for such. NG tube placed with significant output overnight, hydrated, taken to the operating room. Finding; diffuse metastasis, intraabdominal, liver, small bowel and mesentery. He had area of small bowel completely obstructed and two other areas with tumor masses near obstructing. Segmental bowel resection performed, anastomosis performed. Postoperatively, he initially did well, but the next day was talking to caregivers, joking. That evening he developed acute airway obstruction. CPR, intubation undertaken. Dr. Vazquez was available. Using the GlideScope, he could not pass the endotracheal tube through the trachea without forcibly pushing it. The patient postoperatively will remain unresponsive. Discussion with the family, and considering the patient's DNR status, decision was made for terminal extubation. Once the family arrived and was ready for that, that was performed. He was pronounced by his nursing staff. Dr. Banuelos and Valeria Farrlel were notified, and all were in agreement of terminal extubation and comfort measures. He was pronounced on 11/10/2019. Body was released to the home. Job ID: [id number]
== END 2019-11-10 17:36 | disposition expired | DRG 329 ==
LOC: ERS 11:10 → SURG B 16:45 → CCU 11-09 19:10
PROVIDERS: ADMIT Specialist; ATTEND Specialist
PROC: 0DB80ZZ Excision of Small Intestine, Open Approach (ICD-10-PCS; principal; 2019-11-09)
PROC: 05H533Z Insertion of Infusion Device into Right Subclavian Vein, Percutaneous Approach (ICD-10-PCS; 2019-11-09)
PROC: 3E033XZ Introduction of Vasopressor into Peripheral Vein, Percutaneous Approach (ICD-10-PCS; 2019-11-09)
PROC: 5A09357 Assistance with Respiratory Ventilation, Less than 24 Consecutive Hours, Continuous Positive Airway Pressure (ICD-10-PCS; 2019-11-09)
PROC: 30233N1 Transfusion of Nonautologous Red Blood Cells into Peripheral Vein, Percutaneous Approach (ICD-10-PCS; 2019-11-09)
PROC: 3E0T3BZ Introduction of Anesthetic Agent into Peripheral Nerves and Plexi, Percutaneous Approach (ICD-10-PCS; 2019-11-09)
PROC: 0BH17EZ Insertion of Endotracheal Airway into Trachea, Via Natural or Artificial Opening (ICD-10-PCS; 2019-11-10)
PROC: 5A1935Z Respiratory Ventilation, Less than 24 Consecutive Hours (ICD-10-PCS; 2019-11-10)
PROC: 5A12012 Performance of Cardiac Output, Single, Manual (ICD-10-PCS; 2019-11-10)
DX: C78.4 Secondary malignant neoplasm of small intestine (principal); J96.01 Acute respiratory failure with hypoxia; J98.11 Atelectasis; C79.31 Secondary malignant neoplasm of brain; I87.1 Compression of vein; C79.70 Secondary malignant neoplasm of unspecified adrenal gland; C78.6 Secondary malignant neoplasm of retroperitoneum and peritoneum; C78.7 Secondary malignant neoplasm of liver and intrahepatic bile duct; R18.8 Other ascites; E87.2 Acidosis; K56.601 Complete intestinal obstruction, unspecified as to cause; C34.11 Malignant neoplasm of upper lobe, right bronchus or lung; J39.8 Other specified diseases of upper respiratory tract; I10 Essential (primary) hypertension; E78.5 Hyperlipidemia, unspecified; E78.00 Pure hypercholesterolemia, unspecified; J44.9 Chronic obstructive pulmonary disease, unspecified; E86.0 Dehydration; I95.9 Hypotension, unspecified; R53.81 Other malaise; Z87.891 Personal history of nicotine dependence; Z79.01 Long term (current) use of anticoagulants; Z72.89 Other problems related to lifestyle; Z90.49 Acquired absence of other specified parts of digestive tract
CPT/HCPCS: 36415; 36416; 36430; 71045; 71275; 74019; 74022; 74250; 80048; 80053; 81003; 82805; 83690; 83735; 85025; 85379; 86850; 86900; 86901; 88309; 88341; 88342; 93005; 94002; 94640; 94660; 96361; 96372; 96374; C9113; J0171; J0500; J0670; J0690; J1650; J2001; J2270; J2370; J2405; J2704; J3010; J7620; P9016; P9047; Q9963; Q9967